=== PATIENT | female | born 1955 | race Caucasian/White ===

== ENCOUNTER → 2016-07-08 16:43 | Outpatient (CLI) | payer MEDICARE ==
[2016-01-14 12:41] VITALS: BMI 38.3
[~2016-07-08 16:43] MED LIST: ABILIFY10 MG PO; ADDERALL 20 MG20 M1 PO; ALDACTONE100 MG; ALDACTONE100 MG PO; AMBIEN10 MG PO; ARICEPT5 MG PO; ARMOUR THYROID60 M1 PO; ATARAX 25 MG TA25 MG PO; CO Q-10200 MG PO; CYCLOBENZAPRINE10 MG PO; DESERYL100 MG PO; DULCOLAX5 MG PO; EFFEXOR37.5 MG PO; ESTRADERM 0.00.05 MG TD; FIRST-PROG200 MG/SUP VG; FLAGYL500 MG PO; FLUTICASONE PRO16 GM NASAL; GABAPENTIN100 MG PO; GEODON20 MG PO; GLUCOPHAGE500 MG PO; HYDROCODON-ACE1 EAC7; HYDROCODONE-APA1 TAB PO; IBUPROFEN800 MG PO; LEVOXYL100 MCG PO; LIORESAL 10 MG10 MG; LIORESAL 10 MG10 MG PO; LITHIUM CI8 MEQ/5 ML PO; MUCINEX DM ER1 EAC1 PO; MYSOLINE 50 MG50 MG PO; NEURONTIN 300300 MG PO; OMEPRAZOLE40 MG PO; OMNICEF300 MG PO; PHENERGAN25 M1 PO; PLAVIX75 MG PO; PRILOSEC20 MG PO; PROAIR HFA8.5 GM INH; PROZAC20 MG PO; RESTORIL22.5 MG PO; RISPERDAL1 MG PO; SINGULAIR10 MG PO; SYNTHROID100 MCG PO; TRAZODONE HCL50 MG PO; ULTRAM50 MG PO; VITAMIN D31000 UNI2 PO; XANAX0.5 MG PO; ZEGERID 20 MG C1 CAP
== END | disposition home or self-care (01) ==
LOC: D.MAMMO 10:15
DX: Z12.31 Encounter for screening mammogram for malignant neoplasm of breast (principal)

== ENCOUNTER 2016-07-21 00:01 | Outpatient (CLI) | payer MEDICARE ==
[~2016-07-21] VITALS: Ht 165.1 cm; Wt 94.5 kg
--- NOTE | ~2016-07-21 | HEMODYNAMI ---
PATIENT:MAGALY MARTIN MEDICAL RECORD: [id number] : 55 LOCATION:[facility] ADMISSION DATE: 07/21/16 Generatedon:07/21/201613:21 Patient name: MAGALY MARTIN Patient #: [id number] N: [id number] : 1955 Date of study: 07/21/2016 Page: Of Hemodynamic Procedure Report Patient Data Patient Demographics Procedure consent was obtained First Name: MAGALY Gender: Female Last Name: MARIO : 1955 Middle Initial: K Age: 60 year(s) Patient #: [id number] Race: Black SSN: [id number] Additional ID: [id number] Contact details [address]: [address] [place] [address] [address] State: [place] City: [facility] Zip code: [address] Past Medical History Allergies: No known allergies Admission Admission Data Admission Date: 07/21/2016 Admission Time: 13:00 Arrival Date: 07/21/2016 Arrival Time: 13:00 Admit Source: Other Insurance Payor: Medicare Height (in.): 65 BSA: 2.02 (m2) Height (cm.): 165.1 BMI: 34.95 (kg/m2) Weight (lbs.): 210 Weight (kg.): 95.25 Lab Results Lab Result Date: 07/21/2016 Lab Result Time: 0:00 Biochemistry Name Units Result Min Max BUN mg/dl 13 --(--*-)-- 7 18 Creatinine mg/dl 0.8 --(-*--)-- 0.6 1.3 CBC Name Units Result Min Max Hemoglobin g/dl 14.9 --(-*--)-- 13.5 17.5 Procedure Procedure Types Cath Procedure Diagnostic Procedure LHC LHC w/Coronaries Miscellaneous Procedures Moderate Sedation up to 30 minutes Procedure Description Procedure Date Procedure Date: 07/21/2016 Procedure Start Time: 13:05 Procedure End Time: 13:18 Procedure Staff Name Function Raffy Bone MD Performing Physician Isabel Guzman RT Scrub Rualito Luna RN Nurse Shirin Carlos RT Monitor Indication Angina Procedure Data Cath Procedure Fluoroscopy Diagnostic fluoroscopy Total fluoroscopy Time: 1.5 time: 1.5 min min Diagnostic fluoroscopy Total fluoroscopy dose: 369 dose: 369 mGy mGy Contrast Material Contrast Material Type Amount (ml) Isovue 370 46 Entry Location Entry Primary Successful Side Size Upsize Upsize Entry Closure Succes sful Closure Location (Fr) 1 (Fr) 2 (Fr) Remarks Device Remarks Femoral Right 5 Fr Exoseal artery Estimated blood loss: 5 ml Diagnostic catheters Device Type Used For End Catheter Placement Cordis 5Fr JL 4.0 Left Coronary Catheter (MP) Angiography Cordis 5Fr 3DRC Catheter Right Coronary (MP) Angiography Cordis 5Fr Pigtail LV Angiography Catheter (MP) Procedure Complications No complications Procedure Medications Medication Administration Route Dosage Oxygen NC 2 l/min Lidocaine 2% added to field 20 Heparin Flush Bag added to field 2 bags (1000units/500ml NS) 0.9% NaCl I.V. 100 ml/hr Versed I.V. 1 mg Fentanyl I.V. 50 mcg Versed I.V. 1 mg Fentanyl I.V. 50 mcg Hemodynamics Rest BSA: 2.02 (m2) HGB: 14.9 (g/dl) O2 Consumption: Estimated: 183.86 (ml/min) O2 Co nsumption indexed: Estimated:91.02 (ml/min/m) Heart Rate: 60 (bpm) Pressure Samples Time Site Value (mmHg) Purpose Heart Use Rate(bpm) 13:14 LV 126/-2,27 Snapshot 62 Gradients Valve Time Site Site Mean SEP/DFP Peak To Heart Use 1 2 (mmHg) (sec/min) Peak Rate (mmHg) (bpm) Aortic 13:15 LV AO 69 Snapshots Pre Cath Intra NCS Post Cath Vital Signs Time Heart Resp SPO2 NIBP Rhythm Pain Sedation Rate (ipm) (%) (mmHg) Status Level (bpm) 13:02:56 63 19 95 106/62(79) NSR 0 (11) 10(A) , No pain 13:07:07 57 19 93 110/58(84) NSR 0 (11) 9(A) , No pain 13:11:19 62 18 94 105/53(94) NSR 0 (11) 9(A) , No pain 13:15:29 65 19 95 122/63(93) NSR 0 (11) 10(A) , No pain Medications Time Medication Route Dose Verified Delivered Reason Notes Effe ctiveness by by 13:01:13 Oxygen NC 2 Raffy Buffie used for l/min Lizandro Luna RN procedure 13:01:23 Lidocaine 2% added 20ml Raffy Raffy for local to vial Lizandro Bone MD anesthetic field 13:01:30 Heparin Flush added 2 Raffy Raffy used for Bag to bags Lizandro Bone MD procedure (1000units/500ml field NS) 13:01:39 0.9% NaCl I.V. 100 Raffy Buffie Per ml/hr Lizandro Luna RN physician 13:02:01 Versed I.V. 1 mg Raffy Buffie for Lizandro Luna RN sedation 13:02:07 Fentanyl I.V. 50 Raffy Buffie for mcg Liznadro Luna RN sedation 13:09:13 Versed I.V. 1 mg Raffy Buffie for Lizandro Luna RN sedation 13:09:17 Fentanyl I.V. 50 Raffy Buffie for mcg Lizandro Luna RN sedation Procedure Log Time Note 12:30:59 Isabel Guzman RT(R) sent for patient. Start room use. 12:40:57 Informed consent obtained and on chart 12:41:03 Admit Source: Other 12:41:10 Arrival Date: 07/21/2016 1:00:00 PM 12:41:16 Insurance Payor : Medicare 12:41:28 Patient Height : 165.1 cm 12:41:33 Patient Weight : 95.25 kg 12:44:30 Lab Result : BUN 13 mg/dl 12:44:30 Lab Result : Hemoglobin 14.9 g/dl 12:44:30 Lab Result : Creatinine 0.8 mg/dl 12:44:36 Diagnostic Cath Status : Elective 12:44:51 Indication : Angina 12:45:05 Time tracking: Regular hours 12:45:09 Plan of Care:Hemodynamics will remain stable., Cardiac rhythm will remain stable., Comfort level will be maintained., Respiratory function will remain adequate., Patient/ family verbilizes understanding of procedure., Procedure tolerated without complication., Recovers from procedure without complications.. 12:48:06 Patient received from Pre/Post Procedure Room to [facility] 2 Alert and oriented. Tansferred to table in Supine position. 12:48:07 Warm blankets applied, and moy hugger turned on for patient comfort. 12:48:07 Correct patient and procedure confirmed by team. 12:48:08 ECG and BP/O2 sat monitors applied to patient. 12:51:06 H&P Date Dictated: 07/21/2016 Within 30 days and on chart., H&P Addendum completed by physician on day of procedure. (MUST COMPLETE FOR ALL OUTPATIENTS). 12:51:10 Pre-procedure instructions explained to patient. 12:51:12 Family in waiting room. 12:51:14 Patient NPO since Midnight. 12:51:25 Patient allergic to No known allergies 12:51:29 Is the patient allergic to Iodine/contrast media? No. 12:51:34 Is patient on blood thinner?No 12:51:41 Patient diabetic? No. 12:51:48 Snore? No 12:51:49 Sleep apnea? No 12:51:50 Deviated septum? No 12:51:51 Opens mouth fully? Yes 12:52:11 Airway obstruction? No seasonal asthma 12:52:22 Dentures? Yes upper plate in tight 12:52:27 Patient pain scale 0/10 ?. 12:52:35 IV patent on arrival in right hand with 0.[facility]. 12:52:44 Lab results completed and on chart. 12:52:53 Right groin area was prepped with chlora-prep and draped in sterile fashion 12:52:57 Alarms reviewed by Kian Ferrer 12:52:58 Physician paged 13:00:23 Physician arrived 13:00:23 --------ALL STOP TIME OUT------ 13:00:24 Final Timeout: patient, procedure, and site verified with staff and physician. All members of the team are in agreement. 13:00:28 Right groin site verified by team. 13:00:31 Physical assessment completed. ASA score P 2 - A patient with mild systemic disease as per Raffy Boen MD. 13:00:34 Sedation plan: IV Moderate Sedation Versed, Fentanyl 13:01:13 Oxygen 2 l/min NC was administered by Raulito Luna RN; used for procedure; 13:01:23 Lidocaine 2% 20ml vial added to field was administered by Raffy Bone MD; for local anesthetic; 13:01:30 Heparin Flush Bag (1000units/500ml NS) 2 bags added to field was administered by Raffy Bone MD; used for procedure; 13:01:31 Use device set Femoral Dx 13:01:32 Acist Syringe opened to sterile field. 13:01:33 Bag Decanter opened to sterile field. 13:01:33 Medline Cath Pack opened to sterile field. 13:01:33 Terumo 5Fr [place] Sheath opened to sterile field. 13:01:34 [facility] [place] 260cm J .035 wire opened to sterile field. 13:01:35 Acist Hand Control opened to sterile field. 13:01:35 Acist Manifold opened to sterile field. 13:01:36 Diagnostic Infinity 5Fr Multipack catheter opened to sterile field. 13:01:36 Tegaderm 4 x 4 opened to sterile field. 13:01:39 0.9% NaCl 100 ml/hr I.V. was administered by Raulito Luna RN; Per physician; 13:01:43 Vital chart was started 13:02:01 Versed 1 mg I.V. was administered by Raulito Luna RN; for sedation; 13:02:07 Fentanyl 50 mcg I.V. was administered by Raulito Luna RN; for sedation; 13:05:18 Procedure started. 13:05:19 Full Disclosure recording started 13:05:25 Local anesthetic to right femoral artery with Lidocaine 2% by Raffy Bone MD.INITIAL ACCESS ONLY 13:06:17 Zero performed for pressure channel P1 13:06:34 A 5 Fr sheath was inserted into the Right Femoral artery 13:08:03 Baseline sample Acquired. 13:08:26 A Cordis 5Fr JL 4.0 Catheter (MP) was advanced over the wire and used for Left Coronary Angiography. 13:09:10 LCA angiography performed. 13:09:13 Versed 1 mg I.V. was administered by Raulito Luna RN; for sedation; 13:09:13 Injector settings: Ml/sec: 3, Volume: 6, 13:09:17 Fentanyl 50 mcg I.V. was administered by Raulito Luna RN; for sedation; 13:10:57 Catheter removed. 13:11:08 A Cordis 5Fr 3DRC Catheter (MP) was advanced over the wire and used for Right Coronary Angiography. 13:12:38 RCA angiography performed. 13:12:43 Injector settings: Ml/sec: 3, Volume: 6, 13:13:17 Catheter removed. 13:13:31 A Cordis 5Fr Pigtail Catheter (MP) was advanced over the wire and used for LV Angiography. 13:14:58 LV hemodynamics recorded. 13:15:00 LV gram done using RADFORD 13:15:02 Injector settings: Ml/sec: 5, Volume: 15, 13:15:09 EF : 55 % 13:15:31 Catheter removed. 13:16:29 Cordis 5Fr Exoseal opened to sterile field. 13:16:47 Sheath removed intact; hemostasis achieved with Exoseal to the Right Femoral artery. 13:16:58 Procedure ended.(Physican Out) 13:17:25 Fluoroscopy time 01.50 minutes. 13:17:31 Fluoroscopy dose: 369 mGy 13:17:31 Flurop Dose total: 369 13:17:36 Contrast amount:Isovue 370 46ml. 13:17:38 Sharps counted by scrub and verified by R.N. 13:17:39 Insertion/operative site no bleeding no hematoma. 13:17:41 Post-op/insertion site Right Femoral artery dressed using a 4 x 4 and Tegaderm. 13:17:44 Post right femoral artery:stable 13:17:45 Post Procedure Pulses reassessed and unchanged 13:17:49 Post procedure rhythm: unchanged. 13:17:51 Estimated blood loss: 5 ml 13:17:53 Post procedure instruction explained to patient.Patient verbalizes understanding. 13:17:54 Patient needs reinforcement of post procedure teaching. 13:18:16 Procedure type changed to Cath procedure, Diagnostic procedure, LHC, LHC w/Coronaries, Miscellaneous Procedures, Moderate Sedation up to 30 minutes 13:18:18 Procedure and supply charges have been captured, reviewed, submitted and are correct. 13:18:22 Procedure Complication : No complications 13:18:24 Vital chart was stopped 13:18:27 See physician's report for complete and final results. 13:18:30 Report given to Pre/Post Procedure Room. 13:18:33 Patient transfered to Pre/Post Procedure Room with Stretcher. 13:18:36 Procedure ended. 13:18:36 Full Disclosure recording stopped 13:18:42 End room use (Document Last) Device Usage Item Name Manufacture Quantity Catalog Hospital Part Current Minimal Lo t# / Number Charge Number Stock Stock Serial# Code Acist Acist 1 16392 [id number] 530808 930824 20 Syringe [employer] Inc Bag Microtek 1 2002S 480823 39458 089983 5 Decanter Medical Inc. Medline Cardinal 1 [id number] 615236 77769 665622 5 Cath Pack Health Terumo 5Fr Terumo 1 [id number] 593250 520989 390557 [address] [facility] [facility] [place] 1 978491 038928 755479 483800 30 260cm J .035 wire Acist Hand Acist 1 22732 901580 113802 616523 5 Control Medical Systems Inc Acist Acist 1 91122 307362 952481 061267 5 Manifold Medical Systems Inc Diagnostic Cardinal 1 [id number] 839718 87794 078862 30 Infinity Health 5Fr Multipack catheter Tegaderm 4 3M 1 1626W 345887 332141 294746 5 x 4 Cordis 5Fr Cardinal 1 225330 5 JL 4.0 Health Catheter (MP) Cordis 5Fr Cardinal 1 434664 5 3DRC Health Catheter (MP) Cordis 5Fr Cardinal 1 [id number] 5 Pigtail Health Catheter (MP) Cordis 5Fr Cardinal 1 EX500 847427 625663 274212 10 [employer] Signature Audit Holl[place] Stage Time Signature Unsigned Intra-Procedure 07/21/2016 Shirin Carlos 1:21:05 PM RT(R) Signatures Monitor : Shirin Carlos RT Signature : Date : Time : [facility] [address], [place] [address]
[~2016-07-21 00:01] MED LIST changes: -CO Q-10200 MG PO; -DESERYL100 MG PO; -FLAGYL500 MG PO; -FLUTICASONE PRO16 GM NASAL; -GEODON20 MG PO; -HYDROCODON-ACE1 EAC7; -LIORESAL 10 MG10 MG PO; -LITHIUM CI8 MEQ/5 ML PO; -MUCINEX DM ER1 EAC1 PO; -OMEPRAZOLE40 MG PO; -OMNICEF300 MG PO; -PHENERGAN25 M1 PO; -PROAIR HFA8.5 GM INH; -RISPERDAL1 MG PO; -SYNTHROID100 MCG PO
[2016-07-21] MEDS ORDERED: GEODON20 MG PO (10:51)
[2016-07-21] MEDS ORDERED: RISPERDAL1 MG PO (10:52)
[2016-07-21] MEDS ORDERED: FLAGYL500 MG PO (10:53)
[2016-07-21] MEDS ORDERED: LIORESAL 10 MG10 MG PO (10:54)
[2016-07-21] MEDS ORDERED: LITHIUM CI8 MEQ/5 ML PO (10:54)
[2016-07-21] MEDS ORDERED: SYNTHROID100 MCG PO (10:54)
[2016-07-21] MEDS ORDERED: DESERYL100 MG PO (10:55)
[2016-07-21] MEDS ORDERED: ARICEPT5 MG PO (10:55)
[2016-07-21] MEDS ORDERED: PHENERGAN25 M1 PO (10:56)
[2016-07-21] MEDS ORDERED: OMEPRAZOLE40 MG PO (10:56)
[2016-07-21] MEDS ORDERED: CO Q-10200 MG PO (10:57)
[2016-07-21 11:07] VITALS: BP 130/67; Ht 165.1 cm; Wt 94.5 kg
[2016-07-21 12:11] LABS: BASOPHILS 0.6 % (0.0-2.0); EOSINOPHILS 3.3 % (0-7); HEMATOCRIT 44.6 % (36.0-48.0); HEMOGLOBIN 14.9 g/dL (12-16); IMMATURE GRANULOCYTES 0.6 % (0-5); LYMPHOCYTES 30.7 % (15-50); MCH 31.8 pg (26.0-34.0); MCHC 33.4 g/dL (31.0-37.0); MCV 95.3 fL (80.0-100.0); MEAN PLATELET VOLUME 9.6 fL (7.4-10.4); MONOCYTES 10.2 % (2-11); NEUTROPHILS 54.6 % (40-80); PLATELET COUNT 253 10x3/uL (130-400); RBC 4.68 10x6/uL (4.00-5.40); RDW 14.8 % (11.5-14.5); WBC 9.7 10x3/uL (4.8-10.8)
[2016-07-21 12:20] LABS: CALC OSMOLALITY 278 mosm/kg (275-300); CALCIUM 8.9 mg/dL (8.5-10.1); CARBON DIOXIDE 29.1 mmol/L (21.0-32.0); CHLORIDE - SERUM 105 mmol/L (98-107); CREATININE - SERUM 0.8 mg/dL (0.6-1.3); GLUCOSE 110 mg/dL (74-106); POTASSIUM - SERUM 4.4 mmol/L (3.5-5.1); SODIUM 139 mmol/L (136-145); UREA NITROGEN 13 mg/dL (7-18); eGFR NON AFRICAN AMERICAN 77 mL/min (90-120)
[2016-07-21 12:23] LABS: INR 1.01 (0.85-1.17); PROTIME 13.2 SECONDS (11.6-15.0)
--- NOTE | 2016-07-21 13:45 | NUR ---
1335 RECEIVED PT FROM LAW OFFICE ASSISTANT. PT IS DROWSY, DENIES ANY C/O CHEST DISCOMFORT OR NAUSEA. RR IS EVEN AND UNLABORED. 5 FR EXOSEAL CDI TO RIGHT GROIN, AREA IS SOFT WITH NO BLEEDING OR HEMATOMA NOTED. PEDAL PULSES PALPABLE. FEET WARM TO TOUCH. PT INSTRUCTED TO KEEP RIGHT LEG STRAIGHT AND HEAD TO PILLOW AND PT VERBALIZES UNDERSTANDING. FAMILY MEMBER AT BEDSIDE, CALL LIGHT IN REACH.
--- NOTE | 2016-07-21 13:47 | NUR ---
1350 PT IS SLEEPING, RR EVEN AND UNLABORED. SINUS SHU WITH RRATE 56. PEDAL PULSES PALPABLE, DRESSING TO RIGHT GROIN IS CDI, NO BLEEDING OR HEMATOMA NOTED. FAMILY AT BEDSIDE.
--- NOTE | 2016-07-21 14:25 | NUR ---
1420 RR EVEN AND UNLABORED, RIGHT GROIN SOFT AND NONTENDER, NO BLEEDING OR HEMATOMA NOTED. PEDAL PULSES PALPABLE, FAMILY AT BEDSIDE.
--- NOTE | 2016-07-21 15:15 | NUR ---
1450 PT DENIES ANY C/O. MIGUE PO FLUIDS WITH NO NAUSEA. DRESING LEFT GROIN IS CDI, NO BLEEDING OR HEMATOMA NOTED. PEDAL PULSES PALPABLE. CALL LIGHT IN REACH, PT DENIES NEEDDS AT THIS TIME. 1515 DRESSING RIGHT GROIN IS CDI, NO BLEEDING OR HEMATOMA NOTED. PEDAL PULSES PALPABLE, SINUS RHYTHM, RATE 59
--- NOTE | 2016-07-21 15:40 | NUR ---
1535 GROIN REMAINS STABLE, PT DENIES ANY C/O. SANDWICH TRAY SERVED.
--- NOTE | 2016-07-21 15:52 | NUR ---
1550 REVIEWED DC INSTRUCTIONS AND PT VERBALIZES UNDERSTANDING.
--- NOTE | 2016-07-21 16:10 | NUR ---
1605 PT HAS DRESSED FOR DC TO HOME. IV HAS BEEN DC'D WITH CATH INTACT. PT HAS AMBULATED TO THE BATHROOM AND VOIDED QS. DENIES ANY C/O AT THIS TIME. AWAITING HER RIDE HOME.
--- NOTE | 2016-07-21 16:23 | NUR ---
1620 PT ESCORTED TO PRIVATE AUTO VIA WC BY NURSE WITH HER DAUGHTER DRIVING HER HOME.
--- NOTE | 2016-07-30 14:54 | OP ---
PATIENT NAME: MAGALY MARTIN MEDICAL RECORD: [id number] :55 LOCATION:D.CAT ADMISSION DATE: SURGEON: CALEB HARVEY M.D. DATE OF OPERATION: 07/21/2016 Catheterization Report PROCEDURES PERFORMED: 1. Selective coronary angiography. 2. Left heart catheterization with ventriculogram. INDICATION: A 60-year-old woman, who presents with recurrent angina. Recent stress testing revealed anterior wall ischemia. REFERRING PHYSICIAN: Naomi Bradley. EQUIPMENT USED: A 5-Cook Islander JL4, Dexter right, pigtail catheter. TECHNIQUE: A 5-[place]er sheath was placed in retrograde fashion in the right common femoral artery. Next, selective coronary angiography was performed in standard 5-[place]er JL4 and Dexter right. Left heart catheterization performed using pigtail catheter. CORONARY ANATOMY: 1. Left main: Left main trunk is moderate in caliber. It gives rise to the LAD and circumflex. It has no obstruction. 2. LAD: This is a moderate caliber vessel extending to the apex. The mid segment demonstrates a myocardial bridge. Otherwise, the vessel is angiographically normal. 3. Circumflex: This vessel is small in caliber. It is widely patent, angiographically normal. 4. Right coronary artery: This vessel is large in caliber and dominant. The mid vessel has been stented. The stent is widely patent. There is no evidence of restenosis. 5. Left ventricle: Left ventricle is normal in size and function. No wall motion abnormalities are noted. Estimated ejection fraction is 55%. IMPRESSION: 1. Widely patent stent in the right coronary artery without evidence of restenosis. 2. Normal left ventricular function. RECOMMENDATIONS: I suspect the Cardiolite stress test was false positive. We will continue with medical management. TRANSINT:[id number] Voice Confirmation ID: [id number] DOCUMENT ID: [id number] OPERATIVE REPORT [id number] MAGALY MARTIN CALEB HARVEY M.D. at 1454 CC: [id number] DICTATION DATE: 07/21/16 1326 GLASS CHECKER: 07/21/16 2242 DEP CLI 07/21/16 [place] [address]
[2016-08-10] MEDS ORDERED: PROAIR HFA8.5 GM INH (11:55)
== END 2016-07-21 23:59 | disposition home or self-care (01) ==
LOC: D.CATH 00:01
PROVIDERS: Internal Medicine Cardiovascular Disease
DX: I25.119 Atherosclerotic heart disease of native coronary artery with unspecified angina pectoris (principal); Z95.5 Presence of coronary angioplasty implant and graft

== ENCOUNTER 2016-08-11 06:59 | Inpatient (IN) | payer MEDICARE ==
[2016-08-10 13:00] LABS: BASOPHILS 0.5 % (0.0-2.0); EOSINOPHILS 2.8 % (0-7); HEMATOCRIT 43.2 % (36.0-48.0); HEMOGLOBIN 14.5 g/dL (12-16); IMMATURE GRANULOCYTES 0.5 % (0-5); LYMPHOCYTES 37.8 % (15-50); MCH 32.3 pg (26.0-34.0); MCHC 33.6 g/dL (31.0-37.0); MCV 96.2 fL (80.0-100.0); MEAN PLATELET VOLUME 9.5 fL (7.4-10.4); MONOCYTES 9.5 % (2-11); NEUTROPHILS 48.9 % (40-80); PLATELET COUNT 239 10x3/uL (130-400); RBC 4.49 10x6/uL (4.00-5.40); RDW 14.3 % (11.5-14.5)
[2016-08-10 13:08] LABS: APPEARANCE CLEAR (CLEAR); BILIRUBIN NEGATIVE (NEGATIVE); COLOR YELLOW (YELLOW); GLUCOSE NEGATIVE (NEGATIVE); KETONE NEGATIVE (NEGATIVE); LEUKOCYTE ESTERASE NEGATIVE (NEGATIVE); NITRITE NEGATIVE (NEGATIVE); PROTEIN NEGATIVE (NEGATIVE); UROBILINOGEN NORMAL (NORMAL)
[2016-08-10 13:13] LABS: INR 0.98 (0.85-1.17); PROTIME 12.8 SECONDS (11.6-15.0)
[2016-08-10 13:16] LABS: ANION GAP 10.5 mmol/L (8-16); CARBON DIOXIDE 30.2 mmol/L (21.0-32.0); CREATININE - SERUM 0.9 mg/dL (0.6-1.3); POTASSIUM - SERUM 4.7 mmol/L (3.5-5.1)
[2016-08-11] VITALS (12 sets, daily range): BP systolic 107–131; BP diastolic 47–75; Ht 165.1 cm; Wt 94.5 kg
[~2016-08-11] VITALS: Ht 165.1 cm; Wt 94.5 kg
[~2016-08-11 06:59] MED LIST changes: +CO Q-10200 MG PO; +DESERYL100 MG PO; +FLAGYL500 MG PO; +GEODON20 MG PO; +LIORESAL 10 MG10 MG PO; +LITHIUM CI8 MEQ/5 ML PO; +OMEPRAZOLE40 MG PO; +PHENERGAN25 M1 PO; +PROAIR HFA8.5 GM INH; +RISPERDAL1 MG PO; +SYNTHROID100 MCG PO
--- NOTE | 2016-08-11 07:51 | HP ---
PATIENT: MAGALY MARTIN MEDICAL RECORD: [id number] ACCOUNT: [id number] LOCATION[place] [place] 55 ADMISSION DATE: 08/11/16 HISTORY AND PHYSICAL EXAMINATION H&P for Dr. Juanis Huitron with Dr. Priyank Guzman CHIEF COMPLAINT: Neck pain. HISTORY OF PRESENT ILLNESS: This is a 61-year-old white female who presented to the office with complaints of neck pain and bilateral arm pain. She rates her pain 8/10, sometimes 10/10. It is a constant ache. She has had it for years. It has worsened over the past 6 months. She also complains of low back pain, but neck pain is considered worse. She has tried PT. She has also had stents and has been on Plavix, so her surgery was delayed due to Plavix. She says that she has now been off of Plavix for 5 days. PAST MEDICAL HISTORY: Significant for the aforementioned back and neck pain and onset of dementia. She has also had severe depression and fibromyalgia. PAST SURGICAL HISTORY: Carpal tunnel release both hands, hysterectomy, gallbladder, the aforementioned stents. FAMILY HISTORY: Her dad in his 50s from heart disease. Mom at the age of 75 from diabetes complications and heart problems. SOCIAL HISTORY: She smokes a pack per day and single. FAMILY DOCTOR: Naomi Bradley APN. COLLABORATING PHYSICIAN: Dr. Abram Sheets. ALLERGIES: None. CURRENT MEDICATIONS: Plavix. She states that she has intermittently taken Adipex. She has been on naproxen at times and she did not bring another list of meds with her. REVIEW OF SYSTEMS: She had recent chest pain treated with stents. She denies any shortness of breath or weight changes. PHYSICAL EXAMINATION: HEENT: Normocephalic. Pupils are equal, reactive to light. CHEST: Clear bilaterally to auscultation. HEART: S1 and S2. ABDOMEN: Soft. Bowel sounds present. EXTREMITIES: Her geophysicist strength bilaterally is 4/5. She has pain with lateral movement of her neck and with flexion and extension. 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 PLAN: C4-C5, C5-C6 ACDF. The risk and benefits of surgery have been explained to her in detail. Risks include bleeding, failure to relieve symptoms, problems with anesthesia and . Time was allowed for questions, questions were answered. The patient wishes to proceed with surgery. HISTORY AND PHYSICAL [id number] MAGALY MARTIN ANOTHER ADDENDUM: She was informed that she needed to quit smoking. TRANSINT:[id number] Voice Confirmation ID: [id number] DOCUMENT ID: [id number] Dictated By: NINA RUIZ I have interviewed/examined the above patient and agree with these documented findings. JUANIS HUITRON MD at 0751 CC: [id number] DICTATION DATE: 08/10/16 0748 OUTDOOR ADVENTURE INSTRUCTOR: 08/10/16 0925 ADM IN [place] [id number] [place] [address]
--- NOTE | 2016-08-11 16:40 | NUR ---
Received patient from Recovery with MISAEL Sloan. Patient is currently drowsy, arouses to stimuli. Vitals stable, Sinus on CM. Currently on oxymizer. Instructed patient to deep breath and cough. Sukumar drain to left neck, compressed, scant drainage. Lateral neck incision, CDI. Pupils equal, reactive to light. SCDS in place. See shift assessment flowsheet for all findings.
--- NOTE | 2016-08-11 16:40 | NUR ---
1610-OK PER ANESTHESIA TO TRANSFER PT TO CVICU ON 10L OXYMIZER CANNULA.
--- NOTE | 2016-08-11 17:50 | NUR ---
called to check on patient. Update given. No new orders at this time.
--- NOTE | 2016-08-11 18:19 | NUR ---
Patient has friend here to visit. Patient remains sleepy, arouses to voice. VSS.
--- NOTE | 2016-08-11 19:37 | NUR ---
REPORT RECIEVED. ASSESSMENT COMPLETE PER FLOW SHEET. PT SLEEPING COMFORTABLY. O2 VIA OXYMIZER 10L DECREASED TO 8L. O2 SAT 98% RR 8 NON LABORED. BILAT LUNGS CLEAR. NECK INCISION INTACT ARLENE COMPRESSED MINIMAL SEROSANG DRAINAGE NOTED. VSS DENIES NEEDS. WILL CONTINUE TO MONITOR.
--- NOTE | 2016-08-11 23:15 | NUR ---
REASSESSMENT COMPELTE PER FLOW SHEET. VSS. NO NEW CHANGES. VSS WILL CONTINUE TO MONITOR.
[2016-08-12] VITALS (9 sets, daily range): BP systolic 114–136; BP diastolic 50–80
--- NOTE | 2016-08-12 03:20 | NUR ---
REASSESSMENT COMPLETE PER FLOW SHEET. VSS. NO NEW CHANGES. WILL CONTINUE TO MONITOR.
--- NOTE | 2016-08-12 05:06 | NUR ---
ARLENE OP 8ML SEROSANG DRAINAGE
--- NOTE | 2016-08-12 07:21 | OP ---
PATIENT NAME: CATRACHO MARTIN MEDICAL RECORD: [id number] :55 LOCATION:[facility] ADMISSION DATE:08/11/16 SURGEON: JUANIS HUITRON MD DATE OF OPERATION: 08/11/2016 PREOPERATIVE DIAGNOSIS: Bilateral C5, C6 radiculopathy. POSTOPERATIVE DIAGNOSIS: Bilateral C5, C6 radiculopathy. PROCEDURE PERFORMED: Anterior approach cervical spine for: 1. Application of intervertebral biomechanical devices at C4-C5, C5-C6. 2. Anterior interbody arthrodesis with endplate preparation at C4-C5, C5-C6. 3. Discectomy with bilateral foraminotomies and PLL resection at C4-C5, C5-C6. 4. Anterior plate and bilateral vertebral body screw fixation at C4, C5, and C6. 5. Use of intraoperative microscope with microdissection technique. IMPLANTS: Alphatec anterior cervical set. 1. A 32 mm Trestle Luxe plate. 2. A 6 mm medium PEEK cages at both levels with DBX allograft. 3. A 16 mm variable angle screws at C4, 14 mm variable angle screws at C5, 14 mm fixed angle screws at C6. SPECIMENS: None. COMPLICATIONS: None apparent. FINDINGS: No durotomies; no changes in SSEP throughout the case. ESTIMATED BLOOD LOSS: 30 mL. HISTORY OF PRESENT ILLNESS: Ms. Catracho Martin is a pleasant 60-year-old female, who presented as an outpatient with intractable bilateral upper extremity radiculopathy in the C6 and C5 distributions. Imaging was consistent with a foraminal stenosis at these levels. I had an extensive discussion with the patient regarding risks, benefits and options of continued conservative therapy versus operative intervention in the form of C4-C6 anterior cervical discectomy and fusion. She ultimately chose to undergo the operative treatment. Risks, benefits and details were discussed with her in detail preoperatively and she agreed. DESCRIPTION OF PROCEDURE: Ms. Catracho Martin was identified by the anesthesia team and transported to the operative theater where she was gently transferred over the supine position on the operative table where general endotracheal anesthesia commenced and all appropriate lines and tubes were placed. A roll was placed underneath the shoulders. Her head was placed in extension and the anterior cervical spine was prepped and draped in the usual sterile fashion. A timeout was performed and agreed to by those present. The patient did receive IV antibiotics and IV dexamethasone prior to the start of the procedure. Lateral fluoroscopy was used to localize the incision and the skin was infiltrated with local anesthetic. A 10-blade was used to make the incision down to level of subcutaneous fascia. Bovie electrocautery was used to transect the platysma and subplatysmal dissection was performed rostrally and caudally. The plane between the tracheoesophageal bundle medially and the carotid bundle laterally was identified and developed with blunt dissection to OPERATIVE REPORT [id number] CATRACHO MARTIN K the prevertebral fascia. The fascia was opened and further dissected. The C5-C6 and C4-C5 disc spaces were marked with a snap and lateral x-ray confirmed the appropriate levels. 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 The low power Bovie electrocautery was used to clean off the relevant portions of the C5, C4 and C6 vertebral bodies as well as to elevate the longus colli bilaterally. The Qubole trimline retractor was then inserted deep to the longus colli over the C5-C6 disc space and a retraction was deployed. Grand Chenier pins were placed at C6 and C5 and initial discectomy was performed with 15-blade and pituitary rongeurs. The microscope was brought in the field and used until the very end of the case. A gentle amount of Grand Chenier pin distraction was used once initial discectomy was performed. A combination of rojas elevator, high speed matchstick drill, curettes, pituitary rongeurs and Kerrison rongeurs were used to perform a discectomy with bilateral foraminotomy including PLL resection. The foramina were decompressed bilaterally as interrogated by the blunt nerve hook. The small amount of hemorrhage was controlled with installation of a Surgiflo. This was opened and the rinsed away. No further hemorrhage was appreciated. The 6 mm trial was found to be appropriate and a 6-mm graft packed with DBX allograft was then inserted under lateral fluoroscopy to the appropriate depth. A C6 Grand Chenier pin was taken out and the defect was filled through with the Surgiflo hemostatic matrix. The self-retaining retractors were reset over the C4-C5 disc space and the Grand Chenier pin was placed in the C4 vertebral body. A 15-blade was used to make the initial discectomy and gentle Grand Chenier distraction was employed. A combination of high speed matchstick drill, pituitary rongeurs, Kerrison rongeurs, rojas elevator were used to perform discectomy, the PLL resection of bilateral foraminotomies. The bilateral foramina were decompressed towards the end of the procedure. Small amount of epidural hemorrhage was controlled with Surgiflo and then rinsed away with no further hemorrhage appreciated. Again, the 6 mm trial was found to be satisfactory in the lateral x-ray and 6 mm medium PEEK cage packed with DBX was then inserted at C4-C5. Please note the both disc spaces, the adjacent endplates were decorticated gently with a curette, taking care not to violate the endplates. The Grand Chenier pins were removed and Surgiflo was used to control small amount of hemorrhage from the Grand Chenier defects. A 32-mm plate was laid in position, evaluated on lateral x-ray. Starting at the C5 vertebral body, a 12-mm drill with the drill guide was used to predrilled screw tracts and 14-mm variable angle screws were used at the C5 vertebral body. A 14-mm fixed angle screws were used at the C6 vertebral body and a 16-mm variable angle screws were used at the C4 vertebral body. Please note that prior to placement and throughout the rest of the procedure, high speed matchstick drill was used to drill away the osteophytes to make them more flush to prepare the anatomy for plate placement. A copious amount of irrigation was used to infiltrate down the tract. There was no significant hemorrhage appreciated. A small amount of bipolar electrocautery was used on the longus colli to reduce the chance of further hemorrhage from the muscle fibers. Again, there was no significant hemorrhage prior to closure. Copious amount of irrigation was used and a 10-Portuguese round drain was tunneled away from the incision and laid into place. The drain was sutured in place with 3-0 Vicryl suture and the platysma was reapproximated with inverted interrupted 3-0 Vicryl sutures. Skin was closed with a running 4-0 subcuticular Monocryl. All sponge and needle counts correct times 2 at the end the case. The patient tolerated the procedure well without any apparent complications. TRANSINT:[id number] Voice Confirmation ID: [id number] DOCUMENT ID: [id number] OPERATIVE REPORT [id number] CATRACHO MARTIN,JUANIS Carroll MD at 0721 CC: [id number] DICTATION DATE: 08/11/16 1508 RAILROAD MECHANIC: 08/11/162056 ADM IN [place] [id number] [place] [address]
--- NOTE | 2016-08-12 07:30 | NUR ---
DR HUITRON HERE OK FOR PT TO BE DISCHARGE HOME AFTER AMBULATION.
--- NOTE | 2016-08-12 08:15 | NUR ---
UP TO WALK. GAIT STEADY. WALKED ABOUT 200 FT. BACK TO ROOM O2 SAT 80 PERCENT. NINA RUIZ CALLED. DISCHARGED CANCEL AND WILL SEE PT IN A MINUTE.
--- NOTE | 2016-08-12 08:30 | NUR ---
NINA HERE. CXR ORDERED. CONSULT DR LAM AND DONE. O2 ON AT 5 LITERS TO MAINTAIN SAT OF 90 PERCENT.
--- NOTE | 2016-08-12 13:01 | NUR ---
SITTING UP ON SIDE OF BED.
--- NOTE | 2016-08-12 19:17 | NUR ---
REPORT RECIEVED. ASSESSMENT COMPELTE PER FLOW SHEET. VSS. ASSISTED TO BR 150 CC RANDY URINE NOTED. GIVEN PM MEDS PER REQUEST. ADAM FURTHER NEEDS. VSS. WILL CONTINUE TO MONITOR.
[2016-08-13] VITALS: BP 128/57
[2016-08-13 04:00] VITALS: BP 141/54
--- NOTE | 2016-08-13 05:08 | NUR ---
NURSE WAS IN THE ROOM GIVING PT MEDS WHEN THIS NURSE CHECKED ON PT. PT WAS SITTING UP IN THE BED AND WAS WEARING A NECK BRACE. NO DISTRESS NOTED. GOOD MOOD. THE BED IS LOW, RAILS UP X'S 2 WITH THE CALL LIGHT AT HAND.
[2016-08-13 05:50] LABS: BASOPHILS 0.3 % (0.0-2.0); EOSINOPHILS 2.3 % (0-7); HEMATOCRIT 41.3 % (36.0-48.0); HEMOGLOBIN 13.5 g/dL (12-16); IMMATURE GRANULOCYTES 0.3 % (0-5); LYMPHOCYTES 21.9 % (15-50); MCH 31.8 pg (26.0-34.0); MCHC 32.7 g/dL (31.0-37.0); MCV 97.4 fL (80.0-100.0); MEAN PLATELET VOLUME 9.6 fL (7.4-10.4); MONOCYTES 14.7 % (2-11); NEUTROPHILS 60.5 % (40-80); PLATELET COUNT 221 10x3/uL (130-400); RBC 4.24 10x6/uL (4.00-5.40); RDW 14.8 % (11.5-14.5)
[2016-08-13 06:15] LABS: CALC OSMOLALITY 276 mosm/kg (275-300); CALCIUM 8.9 mg/dL (8.5-10.1); CARBON DIOXIDE 31.4 mmol/L (21.0-32.0); CHLORIDE - SERUM 102 mmol/L (98-107); CREATININE - SERUM 0.8 mg/dL (0.6-1.3); GLUCOSE 112 mg/dL (74-106); MAGNESIUM - SERUM 2.1 mg/dL (1.8-2.4); PHOSPHOROUS 3.9 mg/dL (2.5-4.9); POTASSIUM - SERUM 3.9 mmol/L (3.5-5.1); SODIUM 138 mmol/L (136-145); UREA NITROGEN 12 mg/dL (7-18); eGFR NON AFRICAN AMERICAN 77 mL/min (90-120)
--- NOTE | 2016-08-13 07:40 | NUR ---
REPORT RECEIVED FROM DENTAL LABORATORY TECHNICIAN APPRENTICE NURSE. CALL LIGHT IN REACH.
--- NOTE | 2016-08-13 08:36 | NUR ---
Patient Name: MAGALY MARTIN Admission Status: Elective Accout number: [id number] Admission Date: 08-11-2016 : 1955 Admission Diagnosis:CERVICAL DISC DISORDER AT C4-C5 LEVEL WITH RADICULOPATH Attending: LILA Current LOS: 2 Anticipated DC Date: 08-14-2016 Planned Disposition: Home Primary Insurance: MEDICARE A & B Discharge Planning Comments: CM MET WITH PATIENT REGARDING D/C NEEDS AND PLANS. PATIENT STATED SHE LIVES ALONE AND HER DAUGHTER (DIGNA) WILL DRIVE HER HOME AT DISCHARGE. PATIENT STATED HER DAUGHTER CHECKS ON HER AND THERE ARE ALSO NEIGHBORS THAT COULD ASSIST IF NEEDED. PATIENT HAS AN ELEVATOR TO REACH HER APARTMENT. PATIENT STATED SHE HAS HELP/ASSIST BUTTONS IN ALL ROOMS OF HER APARTMENT. PATIENT STATED SHE IS INDEPENDENT WITH HER CARE AND HAS NO DME AT HOME. PATIENTS PCP IS DR. VALDERRAMA AND HER PHARMACY IS [facility] ON [facility]. PATIENT DOES NOT WANT HOME HEALTH AND DID NOT HAVE ANY OTHER NEEDS FOR DISCHARGE. CM WILL CONTINUE TO FOLLOW PATIENT WITH D/C NEEDS AND PLANS. PCP DR[facility] [phone] DIGNA (DAUGHTER) [phone] Certified Hand Therapist: Laila Washburn Is the patient Alert and Oriented? Yes 0 * How many steps to enter\exit or inside your home? ELEVATOR 0 * PCP DR. VALDERRAMA 0 * Pharmacy [facility] 0 * Preadmission Environment Home Alone 0 * ADLs Independent 0 * Equipment None 0 * List name and contact numbers for known caregivers / representatives who currently or will assist patient after discharge: DIGNA [phone] * Community resources currently utilized None 0 * Additional services required to return to the preadmission environment? Yes 0 * Can the patient safely return to the preadmission environment? Yes 0 * Has this patient been hospitalized within the prior 30 days at any hospital? No 0 Grand Total: 0
--- NOTE | 2016-08-13 08:40 | NUR ---
ASSESSMENT COMPELTED. REFUSES SCDs. CALL LIGHT IN REACH. WILL CONTINUE WITH PLAN OF CARE.
[2016-08-13 08:50] VITALS: BP 107/51
--- NOTE | 2016-08-13 10:10 | NUR ---
LOREN PO WITH AM MEDS ADMINISTERED. WILL CALL DR. LAM TO SEE IF IT OK FOR PATIENT TO GO HOME.
--- NOTE | 2016-08-13 10:31 | NUR ---
PASSWORD OBTAINED AND PLACED IN CHART.
[2016-08-13] MEDS ORDERED: HYDROCODON-ACE1 EAC7 (11:43)
[2016-08-13] MEDS ORDERED: SINGULAIR10 MG PO ×2 (11:44→11:47)
[2016-08-13] MEDS ORDERED: OMNICEF300 MG PO (11:44)
[2016-08-13] MEDS ORDERED: FLUTICASONE PRO16 GM NASAL (11:45)
[2016-08-13] MEDS ORDERED: MUCINEX DM ER1 EAC1 PO ×2 (11:45→11:47)
--- NOTE | 2016-08-13 12:20 | NUR ---
WAITING ON NEBULIZER MACHINE TO ARRIVE SO THAT PATIENT CAN GO HOME.
--- NOTE | 2016-08-13 12:30 | NUR ---
LYING IN BED WITH EYES CLOSED. RESP EVEN AND UNLABORED. CALL LIGHT IN REACH. DAUGHTER AT BEDSIDE.
--- NOTE | 2016-08-13 13:01 | NUR ---
CM REASSESSMENT NOTE: PATIENT IS DISCHARGING HOME TODAY - DAUGHTER IS DRIVING HER HOME. PATIENT HAS REFUSED HOME HEALTH OR ANY DME EQUIP OR OTHER NEEDS.
--- NOTE | 2016-08-13 14:20 | NUR ---
RESTING WITH EYES CLOSED. RESP EVEN AND UNLABORED.
--- NOTE | 2016-08-13 14:20 | NUR ---
NO NEEDS VOICED AT THIS TIME. DAUGHTER IN ROOM. CALL LIGHT IN REACH.
--- NOTE | 2016-08-13 14:26 | NUR ---
DC INSTRUCTIONS EXPLAINED TO PATIENT. VERBALIZED UNDERSTANDING. RX FOR NORCO HANDED TO PATIENT.
--- NOTE | 2016-08-13 15:10 | NUR ---
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 to be discharged today. ambulated to desk with steady gait with soft collar in place. no complaints of problems swallowing. call light in reach
--- NOTE | 2016-08-13 16:02 | NUR ---
DC'D TO VEHICLE VIA WC WITH FAMILY.
== END 2016-08-13 16:02 | disposition home or self-care (01) | DRG 471 ==
LOC: D.MS 06:59 → D.SDCHOLD 06:59 → D.CVICU 06:59 → MERGE 09:30 → D.SDCHOLD 09:30 → D.CVICU 15:38 → D.MS 08-12 20:53
PROVIDERS: Anesthesiology; Internal Medicine Pulmonary Disease; ADMIT Neurological Surgery
PROC: 0RG20K0 Fusion of 2 or more Cervical Vertebral Joints with Nonautologous Tissue Substitute, Anterior Approach, Anterior Column, Open Approach (ICD-10-PCS; 2016-08-11)
PROC: 0RB30ZZ Excision of Cervical Vertebral Disc, Open Approach (ICD-10-PCS; 2016-08-11)
PROC: 0RG20A0 Fusion of 2 or more Cervical Vertebral Joints with Interbody Fusion Device, Anterior Approach, Anterior Column, Open Approach (ICD-10-PCS; principal; 2016-08-11 09:30)
DX: M50.121 Cervical disc disorder at C4-C5 level with radiculopathy (principal); J96.01 Acute respiratory failure with hypoxia; J69.0 Pneumonitis due to inhalation of food and vomit; F17.203 Nicotine dependence unspecified, with withdrawal; J44.1 Chronic obstructive pulmonary disease with (acute) exacerbation; J98.11 Atelectasis; M50.122 Cervical disc disorder at C5-C6 level with radiculopathy; M48.02 Spinal stenosis, cervical region; K21.9 Gastro-esophageal reflux disease without esophagitis; J44.9 Chronic obstructive pulmonary disease, unspecified; M79.7 Fibromyalgia; F32.9 Major depressive disorder, single episode, unspecified; J30.9 Allergic rhinitis, unspecified; I25.10 Atherosclerotic heart disease of native coronary artery without angina pectoris; E03.9 Hypothyroidism, unspecified

== ENCOUNTER → 2016-09-03 07:42 | Outpatient (CLI) | payer MEDICARE ==
[2016-08-11 16:51] VITALS: BMI 34.6
[~2016-09-03 07:42] MED LIST changes: +FLUTICASONE PRO16 GM NASAL; +HYDROCODON-ACE1 EAC7; +MUCINEX DM ER1 EAC1 PO; +OMNICEF300 MG PO
== END | disposition home or self-care (01) ==
LOC: D.RAD 07:42
DX: Z48.811 Encounter for surgical aftercare following surgery on the nervous system (principal)

== ENCOUNTER → 2016-11-26 07:11 | Outpatient (CLI) | payer MEDICARE ==
[2016-08-11 16:51] VITALS: BMI 34.6
== END ==
LOC: D.RAD 07:11 → D.MRI 08:30
DX: Z48.811 Encounter for surgical aftercare following surgery on the nervous system (principal); M54.42 Lumbago with sciatica, left side

== ENCOUNTER → 2018-02-07 10:41 | Outpatient (CLI) | payer MEDICARE ==
[~2018-02-07] VITALS: Ht 165.1 cm; Wt 105.9 kg
--- NOTE | ~2018-02-07 | HEMODYNAMI ---
PATIENT:MAGALY MARTIN MEDICAL RECORD: [id number] : 55 LOCATION:[facility] ADMISSION DATE: 02/07/18 Generatedon:02/07/201814:17 Patient name: MAGALY MARTIN Patient #: [id number] SS N: : 1955 Date of study: 02/07/2018 Page: Of Hemodynamic Procedure Report Patient Data Patient Demographics Procedure consent was obtained First Name: MAGALY Gender: Female Last Name: MARIO : 1955 [facility] Initial: K Age: 62 year(s) Patient #: [id number] Race: Additional ID: [id number] Contact details Address: [address] [place] [address] [phone] State: [place] City: [place] Zip code: [address] Past Medical History Allergies: No known allergies Admission Admission Data Admission Date: 02/07/2018 Admission Time: 10:41 Procedure Procedure Types Cath Procedure Diagnostic Procedure LHC LHC w/Coronaries Sedation Charges Moderate Sedation up to 15 minutes Procedure Description Procedure Date Procedure Date: 02/07/2018 Procedure Start Time: 14:01 Procedure End Time: 14:17 Procedure Staff Name Function Raffy Bone MD Performing Physician [place] RT Monitor Raulito Luna RN Nurse Julio Brady RT Scrub Procedure Data Cath Procedure Fluoroscopy Diagnostic fluoroscopy Total fluoroscopy Time: 1.6 time: 1.6 min min Diagnostic fluoroscopy Total fluoroscopy dose: 156 dose: 156 mGy mGy Contrast Material Contrast Material Type Amount (ml) Isovue 300 68 Entry Location Entry Primary Successful Side Size Upsize Upsize Entry Closure Succes sful Closure Location (Fr) 1 (Fr) 2 (Fr) Remarks Device Remarks Femoral Right 5 Fr Exoseal artery Estimated blood loss: 5 ml Diagnostic catheters Device Type Used For End Catheter Placement MULTIPACK JL 4.0 5Fr Left Coronary catheter Angiography MULTIPACK 3DRC 5Fr Right Coronary catheter Angiography MULTIPACK Pigtail 5 Fr LV Angiography catheter Procedure Complications No complications Procedure Medications Medication Administration Route Dosage Oxygen etCO2 Nasal cannula 2 l/min Lidocaine 2% added to field 20 Heparin Flush Bag added to field 2 bags (1000units/500ml NS) 0.9% NaCl I.V. 100 ml/hr Versed I.V. 2 mg Fentanyl I.V. 100 mcg Versed I.V. 1 mg Fentanyl I.V. 25 mcg Hemodynamics Rest Heart Rate: 69 (bpm) Pressure Samples Time Site Value (mmHg) Purpose Heart Use Rate(bpm) 14:11 LV 141/-5,13 EDP 70 14:12 AO 132/65(93) Pullback 71 14:12 LV 158/-9,49 Pullback 71 Gradients Valve Time Site 1 Site 2 Mean SEP/DFP Peak To Heart Use (mmHg) (sec/min) Peak Rate (mmHg) (bpm) Aortic 14:12 LV AO 12 27 26 71 158/-9,49 132/65(93) Calculations Valve P-P Mean Valve Index Valve Source Name Gradient Area Flow (cm2) Aortic 26 12 26 12 Snapshots Pre Cath Intra NCS Post Cath Vital Signs Time Heart Resp SPO2 etCO2 NIBP (mmHg) Rhythm Pain Sedation Rate (ipm) (%) (mmHg) Status Level (bpm) 13:52:00 64 10 100 35 131/78(100) NSR 0 (11) 10(A) , No pain 13:56:22 64 17 99 37.2 128/73(95) NSR 0 (11) 10(A) , No pain 14:00:44 64 19 94 42.5 134/71(100) NSR 0 (11) 10(A) , No pain 14:05:04 66 18 92 39.5 129/75(94) NSR 0 (11) 9(A) , No pain 14:09:26 70 15 95 41.7 131/70(110) NSR 0 (11) 9(A) , No pain 14:13:50 68 17 94 35 132/72(93) NSR 0 (11) 10(A) , No pain Medications Time Medication Route Dose Verified Delivered Reason Notes Eff ectiveness by by 13:49:53 Oxygen etCO2 2 Raffy Buffie used for Nasal l/min Lizandro Luna pediatric clinical dietician cannula 13:51:05 Lidocaine 2% added 20ml Raffy Raffy for local to vial Lizandro Bone MD anesthetic field 13:51:21 Heparin Flush added 2 Raffy Raffy used for Bag to bags Lizandro Bone MD procedure (1000units/500ml field NS) 13:51:32 0.9% NaCl I.V. 100 Raffy Buffie Per ml/hr Lizandro Luna RN physician 13:56:46 Versed I.V. 2 mg Raffy Buffie for Lizandro Luna RN sedation 13:56:52 Fentanyl I.V. 100 Raffy Buffie for mcg Lizandro Luna RN sedation 14:04:07 Versed I.V. 1 mg Raffy Buffie for Lizandro Luna RN sedation 14:04:27 Fentanyl I.V. 25 Raffy Buffie for mcg Lizandro Luna RN sedation Procedure Log Time Note 13:35:50 Raulito Luna RN sent for patient. Start room use. 13:35:51 Time tracking: Regular hours (M-F 7:00 - 5:00) 13:35:55 Plan of Care:Hemodynamics will remain stable., Cardiac rhythm will remain stable., Comfort level will be maintained., Respiratory function will remain adequate., Patient/ family verbilizes understanding of procedure., Procedure tolerated without complication., Recovers from procedure without complications.. 13:42:13 Patient received from Pre/Post Procedure Room to [facility] 3 Alert and oriented. Tansferred to table in Supine position. 13:42:14 Warm blankets applied, and moy hugger turned on for patient comfort. 13:42:14 Correct patient and procedure confirmed by team. 13:42:15 Signed procedure consent form obtained from patient. 13:42:16 ECG and BP/O2 sat monitors applied to patient. 13:42:17 Full Disclosure recording started 13:49:10 Vital chart was started 13:49:13 Rhythm: sinus rhythm 13:49:28 H&P Date Dictated: 01/13/2018 Within 30 days and on chart., H&P Addendum completed by physician on day of procedure. (MUST COMPLETE FOR ALL OUTPATIENTS). 13:49:30 Pre-procedure instructions explained to patient. 13:49:30 Pre-op teaching completed and patient verbalized understanding. 13:49:32 Family in patients room. 13:49:34 Patient NPO since Midnight. 13:49:42 Patient allergic to No known allergies 13:49:44 Is the patient allergic to Iodine/contrast media? No. 13:49:53 Oxygen 2 l/min etCO2 Nasal cannula was administered by Raulito Luna RN; used for procedure; 13:49:53 Is patient on blood thinner?No 13:49:56 Patient diabetic? No. 13:50:12 Previous problem with sedation/anesthesia? No ? 13:50:13 Snore? Yes 13:50:14 Sleep apnea? No 13:50:14 Deviated septum? No 13:50:16 Opens mouth fully? Yes 13:50:16 Sticks out tongue? Yes 13:50:20 Airway obstruction? Yes COPD 13:50:23 Dentures? Yes In 13:51:05 Lidocaine 2% 20ml vial added to field was administered by Raffy Bone MD; for local anesthetic; 13:51:10 Pre procedure: right dorsailis pedis pulse 2+ Normal; easily identifiable; not easily obliterated 13:51:12 Patient pain scale 0/10 ?. 13:51:21 Heparin Flush Bag (1000units/500ml NS) 2 bags added to field was administered by Raffy Bone MD; used for procedure; 13:51:25 IV patent on arrival in left antecubital with 0.9% NaCl at [facility]. 13:51:28 Lab results completed and on chart. 13:51:30 Right groin area was prepped with chlora-prep and draped in sterile fashion 13:51:31 Alarms reviewed by R. N. 13:51:32 0.9% NaCl 100 ml/hr I.V. was administered by Raulito Luna RN; Per physician; 13:51:32 Sharps counted by scrub and verified by R.N. 13:51:34 Use device set Femoral Dx 13:51:35 ACIST Syringe (51311) opened to sterile field. 13:51:36 Bag Decanter (2002S) opened to sterile field. 13:51:36 Medline Cath Pack ([id number]) opened to sterile field. 13:51:37 DIAGNOSTIC WIRE .035 260cm J wire (889620) opened to sterile field. 13:51:38 ACIST Hand Control (12979) opened to sterile field. 13:51:38 ACIST Manifold (71758) opened to sterile field. 13:51:39 DIAGNOSTIC Multipack 5Fr catheter set ([id number]) opened to sterile field. 13:51:39 Tegaderm 4 x 4 (1626W) opened to sterile field. 13:51:41 SHEATH Prelude 5Fr 0.035 (GOP-9H-25-035) opened to sterile field. 13:55:00 Baseline sample Acquired. 13:55:15 Final Timeout: patient, procedure, and site verified with staff and physician. All members of the team are in agreement. 13:55:16 Right groin site verified by team. 13:55:21 Physical assessment completed. ASA score P 2 - A patient with mild systemic disease as per Raffy Bone MD. 13:55:24 Sedation plan: IV Moderate Sedation Medication:Versed, Fentanyl 13:56:46 Versed 2 mg I.V. was administered by Raulito Luna RN; for sedation; 13:56:52 Fentanyl 100 mcg I.V. was administered by Raulito Luna RN; for sedation; 14:00:50 Procedure started. 14:01:18 Local anesthetic to right femoral artery with Lidocaine 2% by Raffy Bone MD.INITIAL ACCESS ONLY 14:03:51 A 5 Fr sheath was inserted into the Right Femoral artery 14:04:07 Versed 1 mg I.V. was administered by Raulito Luna RN; for sedation; 14:04:27 Fentanyl 25 mcg I.V. was administered by Raulito Luna RN; for sedation; 14:06:55 A MULTIPACK JL 4.0 5Fr catheter was advanced over the wire and used for Left Coronary Angiography. 14:08:45 Catheter removed. 14:09:17 A MULTIPACK 3DRC 5Fr catheter was advanced over the wire and used for Right Coronary Angiography. 14:10:39 Catheter removed. 14:10:50 A MULTIPACK Pigtail 5 Fr catheter was advanced over the wire and used for LV Angiography. 14:11:51 LV gram done using RADFORD 14:11:52 LV hemodynamics recorded. 14:11:56 Injector settings: Ml/sec: 10, Volume: 20, 14:12:03 EF : 60 % 14:12:37 Catheter removed. 14:12:50 Sheath removed intact; hemostasis achieved with Exoseal to the Right Femoral artery. 14:12:51 Procedure ended.(Physican Out) 14:13:00 Fluoroscopy time 01.60 minutes. 14:13:26 Fluoroscopy dose: 156 mGy 14:13:26 Flurop Dose total: 156 14:13:29 Contrast amount:Isovue 300 68ml. 14:13:31 Sharps counted by scrub and verified by R.N. 14:13:35 Insertion/operative site no bleeding no hematoma. 14:13:39 Post-op/insertion site Right Femoral artery dressed using a 4 x 4 and Tegaderm. 14:13:42 Post right femoral artery:stable, clean and dry 14:13:53 Post Procedure Pulses reassessed and unchanged 14:14:00 Post-procedure physical assessment completed. ASA score P 2 - A patient with mild systemic disease as per Raffy Bone MD. 14:14:02 Post procedure rhythm: unchanged. 14:14:05 Estimated blood loss: 5 ml 14:14:06 Post procedure instruction explained to patient.Patient verbalizes understanding. 14:14:07 Patient needs reinforcement of post procedure teaching. 14:14:55 Procedure type changed to Cath procedure, Diagnostic procedure, LHC, LHC w/Coronaries, Sedation Charges, Moderate Sedation up to 15 minutes 14:14:59 Procedure Complication : No complications 14:15:01 See physician's report for complete and final results. 14:15:23 EXOSEAL 5Fr (EX500) opened to sterile field. 14:16:51 Procedure and supply charges have been captured, reviewed, submitted and are correct. 14:16:51 Vital chart was stopped 14:16:53 Report given to Pre/Post Procedure Room. 14:16:57 Patient transfered to Pre/Post Procedure Room with Stretcher. 14:17:05 Procedure ended. 14:17:05 Full Disclosure recording stopped 14:17:08 End room use (Document Last) Device Usage Item Name Manufacture Quantity Catalog Number Hospital Part Current M inimal Lot# / Charge Number Stock Stock Serial# Code ACIST Syringe Acist 1 [id number] 309111 192443 [id number] 2 0 (10738) [employer] Bag Decanter Microtek 1 795178 24979 638601 5 () Medical Inc. Medline Cath Cardinal 1 [id number] 162969 74082 993277 5 Pack Health ([id number]) DIAGNOSTIC WIRE [facility] [place] 1 394116 984931 013755 048409 3 0 .035 260cm J wire (024810) ACIST Hand Acist 1 66857 317113 194557 859457 5 Control (40408) [employer] Inc ACIST Manifold Acist 1 95880 485701 628365 906984 5 (72594) [employer] Inc DIAGNOSTIC Cardinal 1 [id number] 138182 42653 758463 3 0 Multipack 5Fr Health catheter set ([id number]) Tegaderm 4 x 4 3M 1 1626W 097135 477243 620239 5 (1626W) SHEATH Prelude Merit 1 [id number] 450311 473135 723725 5 5Fr 0.035 Medical ([id number]) MULTIPACK JL Cardinal 1 627071 5 4.0 5Fr Health catheter MULTIPACK 3DRC Cardinal 1 [id number] 5 5Fr catheter Health MULTIPACK Cardinal 1 044471 5 Pigtail 5 Fr Health catheter EXOSEAL 5Fr Cardinal 1 EX500 728591 495991 620544 1 0 (EX500) Health Signature Audit [place] Stage Time Signature Unsigned Intra-Procedure 02/07/2018 Flower 2:17:21 PM Counts RT(R) Signatures Monitor : Flower Signature : Counts RT Date : Time : [address] [place] [address]
[~2018-02-07 10:41] MED LIST changes: +ALBUTEROL2.5 MG/3 M INH; +ATIVAN1 MG PO; +DONEPEZIL HCL5 M1 PO; +SUDAFED 30 MG T30 MG PO; +VALTREX500 MG PO; +ZANTAC300 MG PO
[2018-02-07 11:45] VITALS: BP 140/83; Ht 165.1 cm; Wt 105.9 kg
[2018-02-07 12:25] LABS: CALC OSMOLALITY 278 mosm/kg (275-300); CALCIUM 9.3 mg/dL (8.5-10.1); CARBON DIOXIDE 26.9 mmol/L (21.0-32.0); CHLORIDE - SERUM 104 mmol/L (98-107); CREATININE - SERUM 0.8 mg/dL (0.6-1.3); GLUCOSE 110 mg/dL (74-106); SODIUM 139 mmol/L (136-145); UREA NITROGEN 13 mg/dL (7-18); eGFR NON AFRICAN AMERICAN 77 mL/min (90-120)
[2018-02-07 12:26] LABS: POTASSIUM - SERUM 5.1 mmol/L (3.5-5.1)
[2018-02-07 12:28] LABS: BASOPHILS 0.5 % (0-2); EOSINOPHILS 3.8 % (0-7); HEMATOCRIT 44.2 % (36.0-48.0); HEMOGLOBIN 15.4 g/dL (12-16); IMMATURE GRANULOCYTES 0.4 % (0-5); LYMPHOCYTES 35.3 % (15-50); MCH 32.3 pg (26.0-34.0); MCHC 34.8 g/dL (31.0-37.0); MCV 92.7 fL (80.0-100.0); MEAN PLATELET VOLUME 9.7 fL (7.4-10.4); MONOCYTES 8.9 % (2-11); NEUTROPHILS 51.1 % (40-80); RBC 4.77 10x6/uL (4.00-5.40); RDW 13.7 % (11.5-14.5); WBC 7.6 10x3/uL (4.8-10.8)
[2018-02-07 12:41] LABS: PLATELET COUNT 292 10x3/uL (130-400)
== END | disposition home or self-care (01) ==
LOC: D.CATH 10:41
PROVIDERS: Internal Medicine Cardiovascular Disease
DX: I25.119 Atherosclerotic heart disease of native coronary artery with unspecified angina pectoris (principal); Z95.5 Presence of coronary angioplasty implant and graft; Z01.812 Encounter for preprocedural laboratory examination

== ENCOUNTER 2018-04-03 08:00 | Outpatient (CLI) | payer MEDICARE ==
[2018-02-07 11:45] VITALS: BMI 38.8
== END 2018-04-03 09:00 | disposition home or self-care (01) ==
LOC: D.MAMMO 08:00
DX: Z12.31 Encounter for screening mammogram for malignant neoplasm of breast (principal)

== ENCOUNTER → 2019-01-30 15:14 | Outpatient (CLI) | payer MEDICARE ==
[2018-02-07 11:45] VITALS: BMI 38.8
[~2019-01-30 15:14] MED LIST changes: +LATUDA40 MG PO; +LIPITOR10 MG PO; +SINEQUAN25 MG PO
== END | disposition home or self-care (01) ==
LOC: D.RT 15:14
PROVIDERS: ATTEND Family Medicine
DX: J44.9 Chronic obstructive pulmonary disease, unspecified (principal)

== ENCOUNTER → 2019-03-06 10:22 | Outpatient (CLI) | payer MEDICARE ==
[2018-02-07 11:45] VITALS: BMI 38.8
== END | disposition home or self-care (01) ==
LOC: D.HCCARDIO 10:22
PROVIDERS: ATTEND Internal Medicine Cardiovascular Disease
DX: I25.10 Atherosclerotic heart disease of native coronary artery without angina pectoris (principal)

== ENCOUNTER → 2019-03-14 12:39 | Outpatient (CLI) | payer MEDICARE ==
[2018-02-07 11:45] VITALS: BMI 38.8
== END | disposition home or self-care (01) ==
LOC: D.HCCECHO 12:39
PROVIDERS: ATTEND Internal Medicine Cardiovascular Disease
DX: R00.2 Palpitations (principal)

== ENCOUNTER 2019-03-15 06:22 | Outpatient (CLI) | payer MEDICARE ==
[~2019-03-15] VITALS: Ht 165.1 cm; Wt 111.4 kg
--- NOTE | ~2019-03-15 | HEMODYNAMI ---
PATIENT:MAGALY MARTIN MEDICAL RECORD: [id number] : 55 LOCATION:[facility] ADMISSION DATE: 03/15/19 Generatedon:03/15/20199:49 Patient name: MAGALY MARTIN Patient #: [id number] N: [id number] : 1955 Date of study: 03/15/2019 Page: Of Hemodynamic Procedure Report Patient Data Patient Demographics Procedure consent was obtained First Name: MAGALY Gender: Female Last Name: MARIO : 1955 [facility] Initial: K Age: 63 year(s) Patient #: [id number] Race: SSN: [id number] Additional ID: [id number] Contact details [address]: [address] [place] [address] [id number] State: [place] City: [place] Zip code: [address] Past Medical History Performed procedures and imaging results Date Procedure Procedure Results Comments Stress testing Positive->Intermediate with SPECT MPI risk History of disease Date Diagnosis Comments CAD Allergies: No known allergies Admission Admission Data Admission Date: 03/15/2019 Admission Time: 6:22 Arrival Date: 03/15/2019 Arrival Time: 0:00 Insurance Payor: Medicare [facility] #: [id number] Height (in.): 64.96 BSA: 2.15 (m2) Height (cm.): 165 BMI: 40.77 (kg/m2) Weight (lbs.): 244.71 Weight (kg.): 111 Lab Results Lab Result Date: 03/15/2019 Lab Result Time: 0:00 Biochemistry Name Units Result Min Max BUN mg/dl 19 --(----)*- 7 18 Creatinine mg/dl 0.9 --(-*--)-- 0.6 1.3 eGFR ml/min 67.22806 *-(----)-- 90 120 NONAFRICAN CBC Name Units Result Min Max Hematocrit % 41 -*(----)-- 42 54 Hemoglobin g/dl 13.6 --(*---)-- 13.5 17.5 Procedure Procedure Types Cath Procedure Diagnostic Procedure [facility] w/Coronaries Sedation Charges Moderate Sedation up to 15 minutes Procedure Description Procedure Date Procedure Date: 03/15/2019 Procedure Start Time: 9:30 Procedure End Time: 9:46 Procedure Staff Name Function Raffy Bone MD Performing Physician Clarissa Feliz RT Monitor Екатерина Lopez RT Scrub Raulito Luna RN Nurse Shirin Carlos RT Monitor Indication Angina Procedure Data Cath Procedure Fluoroscopy Diagnostic fluoroscopy Total fluoroscopy Time: 2.1 time: 2.1 min min Diagnostic fluoroscopy Total fluoroscopy dose: 459 dose: 459 mGy mGy Contrast Material Contrast Material Type Amount (ml) Isovue 300 70 Entry Location Entry Primary Successful Side Size Upsize Upsize Entry Closure Succes sful Closure Location (Fr) 1 (Fr) 2 (Fr) Remarks Device Remarks Femoral Right 6 Fr Exoseal artery Short Estimated blood loss: 5 ml Diagnostic catheters Device Type Used For End Catheter Placement MULTIPACK JL 4.0 5Fr Left Coronary catheter Angiography MULTIPACK 3DRC 5Fr Right Coronary catheter Angiography MULTIPACK Pigtail 5 Fr LV Angiography catheter Procedure Complications No complications Procedure Medications Medication Administration Route Dosage Oxygen etCO2 Nasal cannula 2 l/min Lidocaine 2% added to field 20 Heparin Flush Bag added to field 2 bags (1000units/500ml NS) 0.9% NaCl I.V. 100 ml/hr Versed I.V. 2 mg Fentanyl I.V. 100 mcg Versed I.V. 1 mg Fentanyl I.V. 50 mcg Versed I.V. 1 mg Fentanyl I.V. 50 mcg Hemodynamics Rest BSA: 2.15 (m2) HGB: 13.6 (g/dl) O2 Consumption: Estimated: 199.46 (ml/min) O2 Co nsumption indexed: Estimated:92.77 (ml/min/m) Heart Rate: 67 (bpm) Pressure Samples Time Site Value (mmHg) Purpose Heart Use Rate(bpm) 9:39 LV 131/56,18 Snapshot 105 Gradients Valve Time Site Site Mean SEP/DFP Peak To Heart Use 1 2 (mmHg) (sec/min) Peak Rate (mmHg) (bpm) Aortic 9:40 LV AO 74 Snapshots Pre Cath Intra NCS Post Cath Vital Signs Time Heart Resp SPO2 etCO2 NIBP (mmHg) Rhythm Pain Sedation Rate (ipm) (%) (mmHg) Status Level (bpm) 9:10:49 77 17 98 0 140/75(116) NSR 0 (11) 10(A) , No pain 9:15:07 68 14 96 11.3 141/74(86) NSR 0 (11) 10(A) , No pain 9:19:19 70 19 97 16.6 122/65(109) NSR 0 (11) 10(A) , No pain 9:23:37 75 11 95 0 127/68(93) NSR 0 (11) 10(A) , No pain 9:27:49 77 12 96 0 114/71(94) NSR 0 (11) 9(A) , No pain 9:32:03 74 16 96 22.6 124/73(90) NSR 0 (11) 9(A) , No pain 9:36:19 72 18 96 9 117/67(94) NSR 0 (11) 9(A) , No pain 9:40:29 77 17 97 12.8 118/72(97) NSR 0 (11) 10(A) , No pain 9:44:41 76 13 97 14.3 114/79(106) NSR 0 (11) 9(A) , No pain Medications Time Medication Route Dose Verified Delivered Reason Notes Effe ctiveness by by 9:16:08 Oxygen etCO2 2 Raffy Buffie used for Nasal l/min Lizandro Luna RN procedure cannula 9:16:14 Lidocaine 2% added 20ml Raffy Raffy for local to vial Lizandro Bone MD anesthetic field 9:16:20 Heparin Flush added 2 Raffy Raffy used for Bag to bags Lizandro Bone MD procedure (1000units/500ml field NS) 9:16:36 0.9% NaCl I.V. 100 Raffy Buffie Per ml/hr Lizandro Luna RN physician 9:25:11 Versed I.V. 2 mg Raffy Buffie for Lizandro Luna RN sedation 9:25:18 Fentanyl I.V. 100 Raffy Buffie for mcg Lizandro Luna RN sedation 9:34:37 Versed I.V. 1 mg Raffy Buffie for Lizandro Luna RN sedation 9:34:41 Fentanyl I.V. 50 Raffy Buffie for mcg Lizandro Luna RN sedation 9:38:28 Versed I.V. 1 mg Raffyjarocho Cabezas for Lizandro Luna RN sedation 9:38:31 Fentanyl I.V. 50 Raffy Cabez[place] [facility] [place]andro Luna RN sedation Procedure Log Time Note 8:56:02 Raulito Luna RN sent for patient. Start room use. 8:56:05 Procedure Status Elective Heart Cath (OP). 8:56:07 Time tracking: Regular hours (M-F 7:00 - 5:00) 8:56:29 Plan of Care:Hemodynamics will remain stable., Cardiac rhythm will remain stable., Comfort level will be maintained., Respiratory function will remain adequate., Patient/ family verbilizes understanding of procedure., Procedure tolerated without complication., Recovers from procedure without complications.. 8:56:38 H&P Date Dictated: 02/27/2019 Within 30 days and on chart., H&P Addendum completed by physician on day of procedure. (MUST COMPLETE FOR ALL OUTPATIENTS). 8:56:59 Patient allergic to No known allergies 8:57:44 Signed procedure consent form obtained from patient. 8:58:00 Patient Weight : 244.71 lbs 8:58:04 Patient Height : 64.96 inches 8:58:07 Arrival Date: 03/15/2019 12:00:00 AM 9:00:31 Lab Result : BUN 19 mg/dl 9:00:31 Lab Result : Creatinine 0.9 mg/dl 9:00:31 Lab Result : eGFR NONAFRICAN 67.26481 ml/min 9:00:31 Lab Result : Hemoglobin 13.6 g/dl 9:00:31 Lab Result : Hematocrit 41 % 9:05:43 Stress Test: yes; normal INFERIOR 9:05:49 Risk of Mortality: .1 9:05:52 Risk of blood transfusion: .3 9:05:56 Risk of STEPHANIE: .1 9:06:20 Patient received from Pre/Post Procedure Room to CCL 1 Alert and oriented. Tansferred to table in Supine position. 9:06:21 Warm blankets applied, and moy hugger turned on for patient comfort. 9:06:22 Correct patient and procedure confirmed by team. 9:06:22 ECG and BP/O2 sat monitors applied to patient. 9:08:55 Pre-procedure instructions explained to patient. 9:08:56 Pre-op teaching completed and patient verbalized understanding. 9:08:57 Family in patients room. 9:08:59 Patient NPO since Midnight. 9:09:36 Vital chart was started 9:09:39 Full Disclosure recording started 9:09:42 Rhythm: sinus rhythm 9:09:50 Is the patient allergic to Iodine/contrast media? No. 9:09:51 Is patient on blood thinner?No 9:09:53 Patient diabetic? No. 9:09:59 Patient not . Patient is over age 55. 9:10:01 Previous problem with sedation/anesthesia? No ? 9:10:03 Snore? Yes 9:10:04 Sleep apnea? No 9:10:06 Deviated septum? No 9:10:06 Opens mouth fully? Yes 9:10:08 Sticks out tongue? Yes 9:10:11 Airway obstruction? Yes COPD 9:10:16 Dentures? No ? 9:10:20 Pre procedure: right dorsailis pedis pulse 2+ Normal; easily identifiable; not easily obliterated 9:10:26 Patient pain scale 0/10 ?. 9:10:31 IV patent on arrival in left forearm with 0.9% NaCl at [facility]. 9:10:34 Lab results completed and on chart. 9:10:38 Right groin area was prepped with chlora-prep and draped in sterile fashion 9:10:38 Alarms reviewed by R. N. 9:10:39 Sharps counted by scrub and verified by R.N. 9:10:41 Use device set Femoral Dx 9:10:42 ACIST Syringe (72316) opened to sterile field. 9:10:43 Bag Decanter (2002) opened to sterile field. 9:10:44 ACIST Hand Control (04147) opened to sterile field. 9:10:44 ACIST Manifold (24578) opened to sterile field. 9:10:46 Tegaderm 4 x 4 (1626W) opened to sterile field. 9:10:47 Medline Cath Pack ([id number]) opened to sterile field. 9:10:48 DIAGNOSTIC Multipack 5Fr catheter set (ZK2847) opened to sterile field. 9:10:49 SHEATH 5FR Lima (IRH252) opened to sterile field. 9:10:50 EMERALD Guide Wire (502-640) opened to sterile field. 9:11:01 Baseline sample Acquired. 9:16:08 Oxygen 2 l/min etCO2 Nasal cannula was administered by Raulito Luna RN; used for procedure; Verbal order read back and verified. 9:16:14 Lidocaine 2% 20ml vial added to field was administered by Raffy Bone MD; for local anesthetic; Verbal order read back and verified. 9:16:17 Indication : Angina 9:16:20 Heparin Flush Bag (1000units/500ml NS) 2 bags added to field was administered by Raffy Bone MD; used for procedure; Verbal order read back and verified. 9:16:36 0.9% NaCl 100 ml/hr I.V. was administered by Raulito Luna RN; Per physician; Verbal order read back and verified. 9:22:41 Insurance Payor : Medicare 9:23:11 Zero performed for pressure channel P1 9:24:44 Physician arrived 9:24:45 --------ALL STOP TIME OUT------ 9:24:46 Final Timeout: patient, procedure, and site verified with staff and physician. All members of the team are in agreement. 9:24:50 Right groin site verified by team. 9:24:57 Fire Safety Assessment: A--An alcohol-based skin anteseptic being used preoperatively., C--Open oxygen or nitrous oxide is being used., D--An ESU, laser, or fiber-optic light is being used. 9:25:02 Physical assessment completed. ASA score P 2 - A patient with mild systemic disease as per Raffy Bone MD. 9:25:09 2) 60-89 Mildly reduced kidney function, and other findings (as for stage 1) point to kidney disease. 9:25:11 Versed 2 mg I.V. was administered by Raulito Luna RN; for sedation; Verbal order read back and verified. 9:25:14 Maximum allowable contrast dose (3.7 X eGFR X 0.75)186 ml. 9:25:18 Fentanyl 100 mcg I.V. was administered by Raulito Luna RN; for sedation; Verbal order read back and verified. 9:25:20 Sedation plan: IV Moderate Sedation Medication:Versed, Fentanyl 9:30:29 Procedure started. 9:30:54 Local anesthetic to right femoral artery with Lidocaine 2% by Raffy Bone MD.INITIAL ACCESS ONLY 9:34:37 Versed 1 mg I.V. was administered by Raulito Luna RN; for sedation; Verbal order read back and verified. 9:34:41 Fentanyl 50 mcg I.V. was administered by Raulito Luna RN; for sedation; Verbal order read back and verified. 9:35:08 A 6 Fr Short sheath was inserted into the Right Femoral artery 9:35:20 A MULTIPACK JL 4.0 5Fr catheter was advanced over the wire and used for Left Coronary Angiography. 9:35:31 LCA angiography performed. 9:35:36 Injector settings: Ml/sec: 3, Volume: 6, 9:35:39 Catheter removed. 9:35:52 A MULTIPACK 3DRC 5Fr catheter was advanced over the wire and used for Right Coronary Angiography. 9:36:55 RCA angiography performed. 9:37:07 Injector settings: Ml/sec: 3, Volume: 6, 9:38:27 Catheter removed. 9:38:28 Versed 1 mg I.V. was administered by Raulito Luna RN; for sedation; Verbal order read back and verified. 9:38:31 Fentanyl 50 mcg I.V. was administered by Raulito Luna RN; for sedation; Verbal order read back and verified. 9:38:34 A MULTIPACK Pigtail 5 Fr catheter was advanced over the wire and used for LV Angiography. 9:39:35 LV hemodynamics recorded. 9:39:43 LV gram done using RADFORD 9:40:10 Injector settings: Ml/sec: 10, Volume: 20, 9:40:21 EF : 55 % 9:40:52 Catheter removed. 9:41:11 EXOSEAL 5Fr (EX500) opened to sterile field. 9:41:33 Sheath removed intact; hemostasis achieved with Exoseal to the Right Femoral artery. 9:41:41 Procedure ended.(Physican Out) 9:41:57 Contrast amount:Isovue 300 70ml. 9:42:12 Fluoroscopy time 02.10 minutes. 9:42:23 Flurop Dose total: 459 9:42:23 Fluoroscopy dose: 459 mGy 9:42:35 Dose Area Product 77139 mGy/cm. 9:42:45 Maximum allowable dose exceeded? No. 9:42:47 Sharps counted by scrub and verified by R.N. 9:42:52 Insertion/operative site no bleeding no hematoma. 9:42:58 Post-op/insertion site Right Femoral artery dressed using a 4 x 4 and Tegaderm. 9:43:06 Post right femoral artery:stable 9:43:11 Post Procedure Pulses reassessed and unchanged 9:43:17 Post-procedure physical assessment completed. ASA score P 2 - A patient with mild systemic disease as per Raffy Bone MD. 9:43:25 Post procedure rhythm: unchanged. 9:43:38 Estimated blood loss: 5 ml 9:43:55 Post procedure instruction explained to patient.Patient verbalizes understanding. 9:44:06 Patient needs reinforcement of post procedure teaching. 9:44:38 Procedure type changed to Cath procedure, Diagnostic procedure, LHC, C w/Coronaries, Sedation Charges, Moderate Sedation up to 15 minutes 9:44:41 Procedure and supply charges have been captured, reviewed, submitted and are correct. 9:46:28 Procedure Complication : No complications 9:46:34 Vital chart was stopped 9:46:[address] [facility] Findings: mild to moderate CAD (<70%) 9:46:39 Operative report dictated upon procedure completion. 9:46:40 See physician's report for complete and final results. 9:46:43 Report given to Pre/Post Procedure Room. 9:46:47 Patient transfered to Pre/Post Procedure Room with Stretcher. 9:46:50 Procedure ended. 9:46:50 Full Disclosure recording stopped 9:46:58 End room use (Document Last) Device Usage Item Name Manufacture Quantity Catalog Hospital Part Current Minimal L ot# / Number Charge Number Stock Stock Serial# Code ACIST Acist 1 47362 316505 884923 706200 20 Syringe Medical (67863) Systems Inc Bag Microtek 1 899966 80873 512887 5 Decanter Medical Inc. () ACIST Hand Acist 1 61228 314285 416541 320581 5 Control Medical (81581) Systems Inc ACIST Acist 1 30490 566614 795936 794050 5 Manifold Medical (62518) Systems Inc Tegaderm 4 3M 1 1626W 822218 053817 820829 5 x 4 (1626W) Medline Medline 1 [id number] 498567 35640 466709 5 Cath Pack ([id number]) DIAGNOSTIC Cardinal 1 LE7044 290720 06957 043551 30 Multipack Health 5Fr catheter set (RR1173) SHEATH 5FR Terumo 1 NNE418 469549 792258 639267 5 Lima (LHK269) EMERALD Cardinal 1 502-458 961150 154795 482591 5 Guide Wire [facility] (502-730) MULTIPACK Cardinal 1 338215 5 JL 4.0 5Fr Health catheter MULTIPACK Cardinal 1 929979 5 3DRC 5Fr [facility] catheter MULTIPACK Cardinal 1 822165 5 Pigtail 5 Health Fr catheter EXOSEAL 5Fr Cardinal 1 EX500 732268 886514 737592 10 (EX500) Health Signature Audit [place] Stage Time Signature Unsigned Intra-Procedure 03/15/2019 Clarissa 9:48:32 AM Tray RT(R) (CV) Intra-Procedure 03/15/2019 Raulito Luna RN 9:49:02 AM Intra-Procedure 03/15/2019 Raffy Bone MD 9:49:32 AM [id number] [place] [address]
[~2019-03-15 06:22] MED LIST changes: -LATUDA40 MG PO; -LIPITOR10 MG PO; -SINEQUAN25 MG PO
[2019-03-15] MEDS ORDERED: LIPITOR10 MG PO (07:18)
[2019-03-15] MEDS ORDERED: NEURONTIN 300300 MG PO (07:18)
[2019-03-15] MEDS ORDERED: AMBIEN10 MG PO (07:18)
[2019-03-15] MEDS ORDERED: LATUDA40 MG PO (07:19)
[2019-03-15] MEDS ORDERED: SINEQUAN25 MG PO (07:19)
[2019-03-15 07:32] VITALS: BP 133/61; Ht 165.1 cm; Wt 111.4 kg
[2019-03-15 07:53] LABS: BASOPHILS 0.7 % (0-2); EOSINOPHILS 7.6 % (0-7); HEMOGLOBIN 13.6 g/dL (12-16); IMMATURE GRANULOCYTES 0.5 % (0-5); LYMPHOCYTES 34.6 % (15-50); MCH 31.5 pg (26.0-34.0); MCHC 33.2 g/dL (31.0-37.0); MCV 94.9 fL (80.0-100.0); MEAN PLATELET VOLUME 9.1 fL (7.4-10.4); MONOCYTES 11.4 % (2-11); NEUTROPHILS 45.2 % (40-80); RBC 4.32 10x6/uL (4.00-5.40); RDW 13.3 % (11.5-14.5); WBC 7.5 10x3/uL (4.8-10.8)
[2019-03-15 07:58] LABS: PLATELET COUNT 220 10x3/uL (130-400)
[2019-03-15 08:09] LABS: CHOL - HDL RATIO 2.1 ratio (2.3-4.1); LDL-HDL RATIO 0.9 ratio (1.5-3.5)
[2019-03-15 08:15] LABS: ANION GAP 9.2 mmol/L (8-16); CARBON DIOXIDE 29.1 mmol/L (21.0-32.0); CREATININE - SERUM 0.9 mg/dL (0.6-1.3); POTASSIUM - SERUM 4.3 mmol/L (3.5-5.1)
--- NOTE | 2019-03-15 09:55 | NUR ---
PATIENT ARRIVED TO ROOM 5, PLACED ON CM. 2L NC. RIGHT GROIN DRESSING IS CDI, NO S/S OF BLEEDING OR HEMATOMA. WILL CONTINUE TO MONITOR.
--- NOTE | 2019-03-15 10:10 | NUR ---
PATIENT RESTING, VSS ON 2L NC. RIGHT GROIN DRESSING IS CDI, NO S/S OF BLEEDING OR HEMATOMA. NO C/O PAIN, NUMBNESS, OR TINGLING. NO N/V.
--- NOTE | 2019-03-15 10:40 | NUR ---
HEAD OF BED ELEVATED TO 45 DEGREES. PATIENT GIVEN SANDWICH PER REQUEST, NO N/V. VSS ON ROOM AIR. RIGHT GROIN DRESSING IS CDI, NO S/S OF BLEEDING OR HEMATOMA. NO C/O PAIN, NUMBNESS, OR TINGLING. 2+ PEDAL PULSES.
--- NOTE | 2019-03-15 11:10 | NUR ---
HEAD OF BED AT 90 DEGREES. RIGHT GROIN DRESSING IS CDI, NO S/S OF BLEEDING OR HEMATOMA. VSS ON ROOM AIR. NO C/O PAIN, NUMBNESS, OR TINGLING. WRITTEN AND VERBAL DISCHARGE INSTRUCTIONS GIVEN TO PATIENT, PATIENT VOICES UNDERSTANDING.
--- NOTE | 2019-03-15 11:20 | NUR ---
IV REMOVED. PATIENT DISCONNECTED FROM MONITORS TO GET DRESSED. RIGHT GROIN DRESSING IS CDI, NO S/S OF BLEEDING OR HEMATOMA.
--- NOTE | 2019-03-15 11:40 | NUR ---
PATIENT TRANSPORTED VIA WHEELCHAIR TO WAITING ROOM UPON REQUEST TO WAIT FOR RIDE. ALL BELONGINGS WITH PATIENT. PATIENT VOIDED WITHOUT DIFFICULTY.
== END 2019-03-15 11:40 ==
LOC: D.CATH 06:22
PROVIDERS: ATTEND Internal Medicine Cardiovascular Disease
DX: I25.110 Atherosclerotic heart disease of native coronary artery with unstable angina pectoris (principal); R94.30 Abnormal result of cardiovascular function study, unspecified

== ENCOUNTER → 2019-05-11 11:08 | Outpatient (CLI) | payer MEDICARE ==
[2019-03-15 07:32] VITALS: BMI 40.8
[~2019-05-11 11:08] MED LIST changes: +LATUDA40 MG PO; +LIPITOR10 MG PO; +SINEQUAN25 MG PO
== END | disposition home or self-care (01) ==
LOC: D.RAD 11:08
PROVIDERS: ATTEND Nurse Practitioner Family
DX: R05 Cough (principal)

== ENCOUNTER 2019-05-14 08:00 | Outpatient (CLI) | payer MEDICARE ==
[2019-03-15 07:32] VITALS: BMI 40.8
== END 2019-05-14 23:59 | disposition home or self-care (01) ==
LOC: D.MAMMO 08:00
PROVIDERS: ATTEND Family Medicine
DX: Z12.31 Encounter for screening mammogram for malignant neoplasm of breast (principal)

== ENCOUNTER 2020-08-11 11:45 | Outpatient (CLI) | payer MEDICARE ==
[2019-03-15 07:32] VITALS: BMI 40.8
== END 2020-08-11 12:45 | disposition home or self-care (01) ==
LOC: D.MAMMO 11:45
PROVIDERS: ATTEND Family Medicine
DX: Z12.31 Encounter for screening mammogram for malignant neoplasm of breast (principal)

== ENCOUNTER 2020-08-28 05:10 | Day surgery (SDC) | payer MEDICARE ==
[2020-08-27 09:28] LABS: BASOPHILS 0.6 % (0-2); EOSINOPHILS 6.6 % (0-7); HEMATOCRIT 44.2 % (36.0-48.0); HEMOGLOBIN 14.5 g/dL (12-16); IMMATURE GRANULOCYTES 0.5 % (0-5); LYMPHOCYTE ABS# 2.99 10x3/uL (1.18-3.74); LYMPHOCYTES 36.7 % (15-50); MCH 30.5 pg (26.0-34.0); MCHC 32.8 g/dL (31.0-37.0); MCV 93.1 fL (80.0-100.0); MEAN PLATELET VOLUME 9.4 fL (7.4-10.4); NEUTROPHILS 46.6 % (40-80); PLATELET COUNT 258 10x3/uL (130-400); RBC 4.75 10x6/uL (4.00-5.40); RDW 13.9 % (11.5-14.5); WBC 8.2 10x3/uL (4.8-10.8)
[2020-08-27 09:34] LABS: ANION GAP 9.1 mmol/L (8-16); CALCIUM 8.8 mg/dL (8.5-10.1); CARBON DIOXIDE 29.1 mmol/L (21.0-32.0); CREATININE - SERUM 0.9 mg/dL (0.6-1.3); POTASSIUM - SERUM 4.2 mmol/L (3.5-5.1)
[~2020-08-28] VITALS: Ht 165.1 cm; Wt 113.4 kg
[~2020-08-28 05:10] MED LIST changes: +ALENDRONATE SOD35 MG PO; +CLARITIN 10 MG10 MG PO; +DONEPEZIL HCL5 MG PO; +FUROSEMIDE20 MG PO; +K-TAB10 MEQ PO; +LIPITOR20 MG PO; +VITAMIN D325 MC1 PO; +VOLTAREN75 MG PO; +ZANAFLEX4 MG PO; +ZOLOFT100 MG PO
[2020-08-28 05:53] VITALS: BP 147/99; Ht 165.1 cm; Wt 113.4 kg
[2020-08-28] MEDS ORDERED: MEDROL DOSE PACK4 MG PO (09:41)
[2020-08-28] MEDS ORDERED: HYDROCODON-ACE1 EA10 PO (09:41)
--- NOTE | 2020-08-28 10:52 | NUR ---
DISCHARGED HOME VIA W/C, ACCOMPANIED BY MISAEL GARCÍA, TO [facility] WITH DTR DIGNA NAPIER. ALL BELONGINGS WITH PT.
--- NOTE | 2020-09-08 09:03 | OP ---
PATIENT NAME: MAGALY MARTIN MEDICAL RECORD: [id number] :55 LOCATION:[facility] ADMISSION DATE: SURGEON: VINH PIZARRO MD DATE OF OPERATION: 08/28/2020 PREOPERATIVE DIAGNOSES: Lumbar spinal stenosis and foraminal stenosis at L2-L3 and L3-L4 on the right. POSTOPERATIVE DIAGNOSES: Lumbar spinal stenosis and foraminal stenosis at L2-L3 and L3-L4 on the right. PROCEDURE: Lumbar laminectomy, medial facetectomy and foraminotomy at L2-L3 and L3-L4 on the right with METRx retractor. DESCRIPTION OF PROCEDURE: After induction of general endotracheal anesthesia, the patient was rolled prone on the Reg frame. Lumbar spine was prepped and draped in the usual sterile fashion. Fluoroscopic x-ray and spinal needle localized the L2-L3 interspace on the right side. Levels confirmed with fluoroscopic x-ray. A stab incision was created with 11 blade. Series of dilators were used to advance a METRx retractor to the L2-L3 interspace on the right side. A L2-L3 interspace was confirmed with fluoroscopic x-ray. A microscope and Midas Norris drill were used to perform a laminectomy, medial facetectomy, and foraminotomy at L2-L3 on the right and L3-L4 on the right. Hypertrophied ligamentum flavum was removed at each level within the canal and the neural foramen. Following this, L2, L3 and L4 nerve roots were decompressed as well. Meticulous hemostasis was maintained throughout the wound. The wound was irrigated with copious amounts of Ancef irrigant solution. The retractor was removed. The fascia was closed with 2-0 Vicryl suture. Subdermal layer was closed with 3-0 Vicryl sutures. Skin was closed with sowmya. A sterile dressing was applied to the wound. The patient was awakened in good condition and taken to recovery. All counts were reported as correct. ESTIMATED BLOOD LOSS: Minimal. TRANSINT:[id number] Voice Confirmation ID: [id number] DOCUMENT ID: [id number] VINH PIZARRO MD at 0903 CC: [id number] DICTATION DATE: 09/08/20 0454 BEVERAGE STEWARD: 09/08/20 0844 [facility] 08/28/20 [id number] [place] [address]
== END 2020-08-28 10:52 | disposition home or self-care (01) ==
LOC: D.OPS 05:10
PROVIDERS: Anesthesiology; ATTEND Neurological Surgery
DX: M48.062 Spinal stenosis, lumbar region with neurogenic claudication (principal); M54.16 Radiculopathy, lumbar region; M54.5 Low back pain

== ENCOUNTER 2020-10-13 05:21 | Day surgery (SDC) | payer MEDICARE, MEDICAID ==
[~2020-10-13] VITALS: Ht 165.1 cm; Wt 108.9 kg
--- NOTE | ~2020-10-13 | OP ---
PATIENT NAME: MAGALY MARTIN MEDICAL RECORD: [id number] :55 LOCATION:D.OPS ADMISSION DATE: SURGEON: VINH BOWERS MD DATE OF OPERATION: 10/13/2020 PREOPERATIVE DIAGNOSES: 1. Lumbar spinal stenosis and foraminal stenosis at L3-L4 on the right. 2. Recurrent disc protrusion at L3-L4 on the right. 3. Epidural hematoma. POSTOPERATIVE DIAGNOSES: Lumbar spinal stenosis and foraminal stenosis at L3-L4 on the right. PROCEDURE: Lumbar laminectomy, medial facetectomy and foraminotomy at L3-L4, right with METRx retractor. SURGEON: Vinh Bowers MD DESCRIPTION OF TECHNIQUE: After induction of general endotracheal anesthesia, the patient was rolled prone on Reg frame. The lumbar spine was prepped and draped in the usual sterile fashion. A spinal needle and fluoroscopic x-ray localized at L3-L4 interspace on the right side. A stab incision was created with a #11 blade. A series of dilators were used to advance a METRx retractor over the L3-L4 interspace on the right side. The level was confirmed with fluoroscopic x-ray. A microscope and Midas Norris drill were used to perform a laminectomy, medial facetectomy, and foraminotomy. Hypertrophied ligamentum flavum was removed with Cloward rongeurs. Following this, there was an obvious epidural hematoma in the epidural space. It was evacuated without difficulty. The previous laminectomy at L2-L3 and the portion of L3 included a dura that was well decompressed. Meticulous hemostasis was maintained throughout the wound. The wound was irrigated with copious amounts of Ancef irrigant solution. The retractor was made. The fascia was closed with 2-0 Vicryl suture. The subdermal layer was closed with 3-0 Vicryl suture. The skin was closed with sowmya. A sterile dressing was applied to the wound. The patient was awakened in good condition and taken to recovery. All counts were reported as correct. ESTIMATED BLOOD LOSS: Minimal. TRANSINT:[id number] Voice Confirmation ID: [id number] DOCUMENT ID: [id number] VINH BOWERS MD CC: [id number] DICTATION DATE: 10/13/20929 PHARMACY ANCILLARY: 10/13/20 1228 [facility] 10/13/20 [facility] [address] [place] [address]
[~2020-10-13 05:21] MED LIST changes: +HYDROCODON-ACE1 EA10 PO; +MEDROL DOSE PACK4 MG PO
[2020-10-13 05:59] LABS: BASOPHILS 0.2 % (0-2); EOSINOPHILS 1.7 % (0-7); HEMATOCRIT 41.5 % (36.0-48.0); LYMPHOCYTES 39.2 % (15-50); MCH 30.4 pg (26.0-34.0); MCHC 33.7 g/dL (31.0-37.0); MCV 90.4 fL (80.0-100.0); NEUTROPHILS 47.9 % (40-80); RDW 14.5 % (11.5-14.5)
[2020-10-13 06:04] LABS: PLATELET COUNT 334 10x3/uL (130-400)
[2020-10-13 06:10] LABS: ANION GAP 13.3 mmol/L (8-16); CARBON DIOXIDE 27.6 mmol/L (21.0-32.0); CREATININE - SERUM 1.1 mg/dL (0.6-1.3); POTASSIUM - SERUM 3.9 mmol/L (3.5-5.1)
[2020-10-13 06:26] VITALS: BP 132/66; Ht 165.1 cm; Wt 108.9 kg
[2020-10-13] MEDS ORDERED: MEDROL DOSE PACK4 MG PO (08:59)
[2020-10-13] MEDS ORDERED: HYDROCODON-ACE1 EA10 PO (09:00)
--- NOTE | 2020-10-13 09:37 | NUR ---
4276 PT. STATES HER BACK/LEGS ALREADY FEEL BETTER. INSTRUCTED PT. TO REMAIN STRAIGHT AND SUSPINE FOR THIS FIRST HOUR. CALL LIGHT AT SIDE.
== END 2020-10-13 11:20 | disposition home or self-care (01) ==
LOC: D.OPS 05:21
PROVIDERS: Anesthesiology; ATTEND Neurological Surgery
DX: M48.061 Spinal stenosis, lumbar region without neurogenic claudication (principal); M51.26 Other intervertebral disc displacement, lumbar region; M54.16 Radiculopathy, lumbar region; E66.9 Obesity, unspecified; Z68.41 Body mass index [BMI] 40.0-44.9, adult; F17.200 Nicotine dependence, unspecified, uncomplicated

== ENCOUNTER → 2020-10-30 20:15 | Outpatient (CLI) | payer MEDICARE, MEDICAID ==
[2020-10-13 06:26] VITALS: BMI 40.0
== END | disposition home or self-care (01) ==
LOC: D.LABREF 20:15
PROVIDERS: ATTEND Orthopaedic Surgery
DX: M17.11 Unilateral primary osteoarthritis, right knee (principal)